=== PATIENT | male | born 1940 | race Caucasian/White ===

== ENCOUNTER 2017-07-22 15:56 | Inpatient (IN) | payer MEDICARE, BC ==
[~2017-07-22] VITALS: Ht 182.9 cm; Wt 81.6 kg
[~2017-07-22 15:56] MED LIST: OCUVITE1 EA ORAL; TYLENOL100 MG/11 PO
[2017-07-22 15:58] VITALS: BP 119/66
[2017-07-22] MEDS ORDERED: cefTRIAXone 2 GM in NS 110 ML IV SCH (16:15)
[2017-07-22 17:04] LABS: MEAN CORPUSCULAR HEMOGLOBIN 29.5 PG (27.0-31.0); MEAN CORPUSCULAR HGB CONC 30.9 G/DL (32.0-36.0); MEAN CORPUSCULAR VOLUME 95 FL (80-99); MEAN PLATELET VOLUME 9.2 FL (6.5-10.1); PLATELET COUNT 137 K/UL (150-450); RED BLOOD COUNT 3.95 M/UL (4.70-6.10); RED CELL DISTRIBUTION WIDTH 12.3 % (11.6-14.8); WHITE BLOOD COUNT 10.4 K/UL (4.8-10.8)
[2017-07-22 17:30] VITALS: BP 127/69
[2017-07-22 17:38] LABS: ALANINE AMINOTRANSFERASE 21 U/L (12-78); ALBUMIN/GLOBULIN RATIO 1.3 (1.0-2.7); ANION GAP 11 mmol/L (5-15); ASPARTATE AMINO TRANSFERASE 20 U/L (15-37); CALCIUM 9.4 MG/DL (8.5-10.1); CARBON DIOXIDE 25 MMOL/L (21-32); CHLORIDE 110 MMOL/L (98-107); CKMB 1.4 NG/ML (0.0-3.6); CREATININE 1.5 MG/DL (0.55-1.30); POTASSIUM 4.4 MMOL/L (3.5-5.1); SODIUM 146 MMOL/L (136-145); TOTAL PROTEIN 6.8 G/DL (6.4-8.2)
[2017-07-22 17:56] LABS: BILIRUBIN,DIRECT 0.4 MG/DL (0.0-0.3)
--- NOTE | 2017-07-22 18:16 | Diagnostic Imaging Report ---
Indication: Shortness of breath Technique: One view of the chest Comparison: none Findings: Nodular opacity in the left lung base likely reflects a nipple shadow. The lungs and pleural spaces are clear. Heart size is normal. Surgical clip is seen in the left lung apex Impression: No acute process
[2017-07-22 18:31] VITALS: BP 149/81
[2017-07-22 18:37] LABS: APPEARANCE,URINE CLEAR; KETONES,URINE 1+ (NEGATIVE); LEUKOCYTE ESTERASE ,URINE 1+ (NEGATIVE); NITRITE,URINE NEGATIVE (NEGATIVE); PH,URINE 5 (4.5-8.0); PROTEIN,URINE 2+ (NEGATIVE); UROBILINOGEN,URINE NORMAL MG/DL (0.0-1.0)
[2017-07-22 18:53] LABS: BACTERIA,URINE FEW /HPF
[2017-07-22 18:54] LABS: AMORPHOUS SEDIMENT,UR FEW /LPF
[2017-07-22] MEDS ORDERED: Vancomycin 1 GM in NS 275 ML IVPB ONE (19:00)
[2017-07-22] MEDS ORDERED: Vancomycin 1gm inj IVPB ONE (19:06)
[2017-07-22] MEDS ORDERED: NS 275 ML ONE (19:09)
[2017-07-22 19:20] VITALS: BP 147/87
[2017-07-22 19:28] LABS: ANISOCYTOSIS 1+; BAND NEUTROPHILS % (MANUAL) 1 % (0-8); BASOPHILS % (MANUAL) 0 % (0-2); EOSINOPHILS % (MANUAL) 0 % (0-3); HYPOCHROMASIA 1+; LYMPHOCYTES % (MANUAL) 8 % (20-45); NEUTROPHILS % (MANUAL) 88 % (45-75); PLATELET ESTIMATE DECREASED; PLATELET MORPHOLOGY NORMAL; TOTAL CELLS COUNTED 100
[2017-07-22] MEDS ORDERED: levETIRAcetam 500mg vial IV ONE (20:09)
[2017-07-22] MEDS ORDERED: levETIRAcetam 500 MG in D5W 95 ML IVPB ONE (20:15)
[2017-07-22 21:20] VITALS: BP 144/83
[2017-07-22] MEDS ORDERED: Albuterol/Ipratropium 3ml neb HHN PRN (21:30)
[2017-07-22] MEDS ORDERED: Promethazine/Codeine 5ml UD ORAL PRN (21:30)
[2017-07-22] MEDS ORDERED: Nitroglycerin Subl 0.4mg tab SL PRN (21:30)
[2017-07-22] MEDS ORDERED: Miralax 17gm pkt ORAL PRN (21:30)
[2017-07-22] MEDS ORDERED: Mylanta II UD 30ml ORAL PRN (21:30)
--- NOTE | 2017-07-22 22:15 | Emergency Room Report ---
History of Present Illness General Chief Complaint: Altered Mental Status Source: Patient, EMS Present Illness HPI Patient is brought in by EMS for confusion. Apparently, this patient was wandering and confused at his neighbors house about 3 houses down from his home. The neighbors of this patient and called EMS. The patient himself has no complaints. The patient is oriented x1. There is no other history available. The patient believes that the president is president Richard. He believes the year is 2013. Allergies: Coded Allergies: No Known Allergies (Unverified , 04/25/13) UNABLE TO ASSESS (Unverified , 07/22/17) Patient History Past Medical History: unable to obtain Past Surgical History: unable to obtain Pertinent Family History: unable to obtain Social History: Denies: smoking, alcohol use, drug use Reviewed Nursing Documentation: PMH: Agreed, PSxH: Agreed Nursing Documentation-PMH Past Medical History Deferred: Pt Cognitively Impaired Review of Systems All Other Systems: negative except mentioned in HPI Physical Exam Vital Signs Date Time Temp Pulse Resp B/P (MAP) Pulse Ox O2 Delivery O2 Flow Rate FiO2 07/22/17 15:50 102.6 109 20 152/77 96 Room Air Sp02 EP Interpretation: reviewed, normal General Appearance: no apparent distress, alert, GCS 15, non-toxic Head: normocephalic, atraumatic Eyes: bilateral eye normal inspection, bilateral eye PERRL ENT: hearing grossly normal, normal pharynx, no angioedema, normal voice Neck: full range of motion, supple/symm/no masses Respiratory: chest non-tender, lungs clear, normal breath sounds, speaking full sentences Cardiovascular #1: regular rate, rhythm, no edema Gastrointestinal: normal bowel sounds, non tender, soft, non-distended, no guarding, no rebound Rectal: deferred Musculoskeletal: back normal, normal range of motion, non-tender Neurologic: alert, responsive, motor strength/tone normal, sensory intact, speech normal, other - oriented to self only Psychiatric: mood/affect normal, no suicidal/homicidal ideation Skin: normal color, no rash, warm/dry, well hydrated Medical Decision Making Diagnostic Impression: Primary Impression: Sepsis Additional Impression: Intracranial mass ER Course This patient presents with confusion. He is only oriented to self. He has no known family. He also presents with a temp of 102. CT of the patient's head shows mass lesions. These could be metastatic lesions versus abscesses. There is some midline shift. The patient was given broad-spectrum antibiotics and antiseizure medications. He is also given IV fluid and admitted to telemetry for further evaluation and treatment. Laboratory Tests Test 07/22/17 16:27 07/22/17 17:35 White Blood Count 10.4 K/UL (4.8-10.8) Red Blood Count 3.95 M/UL (4.70-6.10) L Hemoglobin 11.7 G/DL (14.2-18.0) L Hematocrit 37.7 % (42.0-52.0) L Mean Corpuscular Volume 95 FL (80-99) Mean Corpuscular Hemoglobin 29.5 PG (27.0-31.0) Mean Corpuscular Hemoglobin Concent 30.9 G/DL (32.0-36.0) L Red Cell Distribution Width 12.3 % (11.6-14.8) Platelet Count 137 K/UL (150-450) L Mean Platelet Volume 9.2 FL (6.5-10.1) Neutrophils (%) (Auto) % (45.0-75.0) Lymphocytes (%) (Auto) % (20.0-45.0) Monocytes (%) (Auto) % (1.0-10.0) Eosinophils (%) (Auto) % (0.0-3.0) Basophils (%) (Auto) % (0.0-2.0) Differential Total Cells Counted 100 Neutrophils % (Manual) 88 % (45-75) H Lymphocytes % (Manual) 8 % (20-45) L Monocytes % (Manual) 3 % (1-10) Eosinophils % (Manual) 0 % (0-3) Basophils % (Manual) 0 % (0-2) Band Neutrophils 1 % (0-8) Platelet Estimate Decreased L Platelet Morphology Normal Hypochromasia 1+ Anisocytosis 1+ Sodium Level 146 MMOL/L (136-145) H Potassium Level 4.4 MMOL/L (3.5-5.1) Chloride Level 110 MMOL/L (98-107) H Carbon Dioxide Level 25 MMOL/L (21-32) Anion Gap 11 mmol/L (5-15) Blood Urea Nitrogen 39 mg/dL (7-18) H Creatinine 1.5 MG/DL (0.55-1.30) H Estimate Glomerular Filtration Rate mL/min (>60) Glucose Level 124 MG/DL (74-106) H Lactic Acid Level 1.70 mmol/L (0.66-2.22) Calcium Level 9.4 MG/DL (8.5-10.1) Total Bilirubin 2.4 MG/DL (0.2-1.0) H Direct Bilirubin 0.4 MG/DL (0.0-0.3) H Aspartate Amino Transferase (AST) 20 U/L (15-37) Alanine Aminotransferase (ALT) 21 U/L (12-78) Alkaline Phosphatase 81 U/L (46-116) Total Creatine Kinase 78 U/L (26-308) Creatine Kinase MB 1.4 NG/ML (0.0-3.6) Creatine Kinase MB Relative Index 1.7 Troponin I 0.006 ng/mL (0.000-0.056) Total Protein 6.8 G/DL (6.4-8.2) Albumin 3.8 G/DL (3.4-5.0) Globulin 3.0 g/dL Albumin/Globulin Ratio 1.3 (1.0-2.7) Urine Color Yellow Urine Appearance Clear Urine pH 5 (4.5-8.0) Urine Specific [place] 1.020 (1.005-1.035) Urine Protein 2+ (NEGATIVE) H Urine Glucose (UA) Negative (NEGATIVE) Urine Ketones 1+ (NEGATIVE) H Urine Occult Blood Negative (NEGATIVE) Urine Nitrite Negative (NEGATIVE) Urine Bilirubin Negative (NEGATIVE) Urine Urobilinogen Normal MG/DL (0.0-1.0) Urine Leukocyte Esterase 1+ (NEGATIVE) H Urine RBC 2-4 /HPF (0 - 0) H Urine WBC 5-10 /HPF (0 - 0) H Urine Squamous Epithelial Cells None /LPF (NONE/OCC) Urine Amorphous Sediment Few /LPF (NONE) H Urine Bacteria Few /HPF (NONE) Urine Fine Granular Casts 2-4 /LPF (NONE) H EKG Diagnostic Results Rate: normal Rhythm: NSR ST Segments: other Other Impression NSST Rhythm Strip Diag. Results EP Interpretation: yes Rate: 50's Rhythm: no PVC's, no ectopy, other Other Impression S.bradycardia. Chest X-Ray Diagnostic Results Chest X-Ray Diagnostic Results : Chest X-Ray Ordered: Yes # of Views/Limited/Complete: 1 View Indication: Other - fever EP Interpretation: No Interpretation: no consolidation, no effusion, no pneumothorax, no acute cardiopulmonary disease Impression: No acute disease Electronically Signed by: Luis Miguel CT/MRI/US Diagnostic Results CT/MRI/US Diagnostic Results : Imaging Test Ordered: CT head Impression Left frontal also states that approximately 4 x 2.9 cm with the chief a vasogenic edema and mass effect on the left frontal horn. Also small area of edema and suspected small cystic mass right frontal lobe. Findings can be neoplastic or infection/laboratory process. No hemorrhage. See official report. Last Vital Signs Date Time Temp Pulse Resp B/P (MAP) Pulse Ox O2 Delivery O2 Flow Rate FiO2 07/22/17 19:20 98.0 82 17 147/87 100 Room Air Disposition: ADMITTED INPATIENT Condition: Serious Referrals: NOT CHOSEN HUMA/,REFERRING (PCP) VICKY NATHAN D.O. Jul 22, 2017 22:15
[2017-07-22 22:47] VITALS: BP 139/85
[2017-07-23] VITALS: BP 148/94
[2017-07-23 04:00] VITALS: BP 136/85
[2017-07-23 08:00] VITALS: BP_SYST 129; BP_SYST 146; BP_DIAS 75; BP_DIAS 76
[2017-07-23 08:12] LABS: BASOPHILS % (AUTO) 0.7 % (0.0-2.0); EOSINOPHILS % (AUTO) 1.8 % (0.0-3.0); LYMPHOCYTES % (AUTO) 11.7 % (20.0-45.0); MEAN CORPUSCULAR HGB CONC 32.5 G/DL (32.0-36.0); MEAN CORPUSCULAR VOLUME 95 FL (80-99); MEAN PLATELET VOLUME 10.9 FL (6.5-10.1); MONOCYTES % (AUTO) 10.4 % (1.0-10.0); NEUTROPHILS % (AUTO) 75.4 % (45.0-75.0); PLATELET COUNT 136 K/UL (150-450); RED BLOOD COUNT 3.87 M/UL (4.70-6.10); RED CELL DISTRIBUTION WIDTH 12.4 % (11.6-14.8); WHITE BLOOD COUNT 10.2 K/UL (4.8-10.8)
[2017-07-23 08:27] LABS: ANION GAP 7 mmol/L (5-15); CALCIUM 8.8 MG/DL (8.5-10.1); CARBON DIOXIDE 26 MMOL/L (21-32); CHLORIDE 112 MMOL/L (98-107); CREATININE 1.2 MG/DL (0.55-1.30); PHOSPHORUS 2.8 MG/DL (2.5-4.9); POTASSIUM 3.9 MMOL/L (3.5-5.1); SODIUM 145 MMOL/L (136-145)
[2017-07-23 08:30] LABS: INR 1.1 (0.9-1.1); PROTHROMBIN TIME 11.7 SEC (9.30-11.50)
[2017-07-23 08:49] LABS: IRON 99 ug/dL (50-175); TOTAL IRON BINDING CAPACITY 211 ug/dL (250-450)
[2017-07-23] MEDS: Heparin 5000 units/ml inj SUBQ SCH ×2 (09:00→21:17)
[2017-07-23 09:17] LABS: FOLIC ACID 19.7 NG/ML (3.1-17.5)
[2017-07-23 09:35] LABS: LACTATE DEHYDROGENASE 133 U/L (135-225)
[2017-07-23 09:38] LABS: ERYTHROCYTE SEDIMENTATION RATE 4 MM/HR (0-20)
--- NOTE | 2017-07-23 09:48 | Consultation ---
Consult Note Consult Note ID CONSULT: Prudence# [id number] Assessment/Plan ASSESSMENT: 77 y/o male with: // Fever r/o infection vs malignancy - improved, no leukocytosis, cultures pending. No localizing s/sx infection - UA(-), CXR NAF // Acute encephalopathy - CT Head 07/22: mass lesions. These could be metastatic lesions versus abscesses. There is some midline shift. // Abnl CT head - CT Head 07/22: mass lesions. These could be metastatic lesions versus abscesses. There is some midline shift. // Possible h/o unknown CA SP unknown surgery x2 @ [facility] // TCP // NKDA // Full Code PLAN: - continue empiric IV vancomycin, cefepime d# 2 pending cultures - check echo - consider MRI - consider steroids - f/u cultures - f/u malignancy w/u - f/u neuro eval - f/u CT head - monitor CBC, temperatures - monitor BMP - request/review [facility] records Thanks! Will follow JAVAN REED Jul 23, 2017 09:48
[2017-07-23 09:54] LABS: BAND NEUTROPHILS % (MANUAL) 1 % (0-8); BASOPHILS % (MANUAL) 1 % (0-2); EOSINOPHILS % (MANUAL) 1 % (0-3); LYMPHOCYTES % (MANUAL) 14 % (20-45); NEUTROPHILS % (MANUAL) 74 % (45-75); PLATELET ESTIMATE DECREASED; PLATELET MORPHOLOGY NORMAL; TOTAL CELLS COUNTED 100
[2017-07-23 09:56] LABS: ACANTHOCYTES OCCASIONAL
[2017-07-23 10:15] LABS: RETICULOCYTE COUNT 0.3 % (0.0-2.0)
[2017-07-23] MEDS: Cefepime HCl 1 GM in D5W 55 ML IV SCH ×2 (10:25→21:16)
[2017-07-23 11:51] VITALS: BP 117/76
[2017-07-23 12:32] LABS: PATH BLOOD SMEAR/OMC SENT TO PATHOLOGIST
--- NOTE | 2017-07-23 12:38 | History and Physical ---
History of Present Illness General Date patient seen: Jul 23, 2017 Reason for Hospitalization: Altered Mental Status Present Illness HPI 77 year old with unknown PMHx brought in by paramedics with CC of confusion. He was found by neighbors confused. He knows his name and knows the location confused about date. His initial CT of head showed possible brain mass or abscess. He was febrile. He is admitted to telemetry for further work up. Pt has an old surgical scar in abdomen. 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 But the thinks we are in 1987. Allergies: Coded Allergies: No Known Allergies (Unverified , 04/25/13) UNABLE TO ASSESS (Unverified , 07/22/17) Medication History Scheduled Acetaminophen (Tylenol), 500 MG PO Q6HR Beta-Carotene(A) W-C & E/Min (Prosight Tablet), 1 TAB ORAL DAILY, (Reported) Patient History Healthcare decision maker Resuscitation status Full Code Advanced Directive on File No Review of Systems All Other Systems: negative except mentioned in HPI Physical Exam General Appearance: WD/WN Lines, tubes and drains: peripheral, trach HEENT: atraumatic Neck: non-tender, normal alignment Respiratory/Chest: chest wall non-tender, lungs clear Cardiovascular/Chest: normal peripheral pulses, normal rate Abdomen: normal bowel sounds, non tender Genitourinary/Rectal: normal genital exam Extremities: normal range of motion Neurologic: independent contractor II-XII grossly normal Last 24 Hour Vital Signs Date Time Temp Pulse Resp B/P (MAP) Pulse Ox O2 Delivery O2 Flow Rate FiO2 07/23/17 11:51 97.2 52 18 117/76 99 Room Air 07/23/17 08:00 97.0 51 18 146/76 99 Room Air 07/23/17 08:00 48 07/23/17 04:10 55 07/23/17 04:00 97.0 74 21 136/85 100 Room Air 07/23/17 00:08 65 07/23/17 00:00 98.1 68 23 148/94 98 Room Air 07/23/17 00:00 98.0 76 16 148/94 99 Room Air 07/22/17 23:20 98.0 60 16 139/85 100 Room Air 07/22/17 22:47 98.0 60 16 139/85 100 Room Air 07/22/17 21:20 98.0 59 17 144/83 100 Room Air 07/22/17 19:20 98.0 82 17 147/87 100 Room Air 07/22/17 18:31 98.0 73 18 149/81 100 Room Air 07/22/17 17:30 97.8 75 18 127/69 100 Room Air 07/22/17 17:18 97.8 07/22/17 15:58 102.6 87 17 119/66 100 Room Air 07/22/17 15:50 102.6 109 20 152/77 96 Room Air Laboratory Tests Test 07/22/17 16:27 07/22/17 17:35 07/23/17 06:55 White Blood Count 10.4 K/UL (4.8-10.8) 10.2 K/UL (4.8-10.8) Red Blood Count 3.95 M/UL (4.70-6.10) L 3.87 M/UL (4.70-6.10) L Hemoglobin 11.7 G/DL (14.2-18.0) L 12.0 G/DL (14.2-18.0) L Hematocrit 37.7 % (42.0-52.0) L 37.0 % (42.0-52.0) L Mean Corpuscular Volume 95 FL (80-99) 95 FL (80-99) Mean Corpuscular Hemoglobin 29.5 PG (27.0-31.0) 31.0 PG (27.0-31.0) Mean Corpuscular Hemoglobin Concent 30.9 G/DL (32.0-36.0) L 32.5 G/DL (32.0-36.0) Red Cell Distribution Width 12.3 % (11.6-14.8) 12.4 % (11.6-14.8) Platelet Count 137 K/UL (150-450) L 136 K/UL (150-450) L Mean Platelet Volume 9.2 FL (6.5-10.1) 10.9 FL (6.5-10.1) H Neutrophils (%) (Auto) % (45.0-75.0) 75.4 % (45.0-75.0) H Lymphocytes (%) (Auto) % (20.0-45.0) 11.7 % (20.0-45.0) L Monocytes (%) (Auto) % (1.0-10.0) 10.4 % (1.0-10.0) H Eosinophils (%) (Auto) % (0.0-3.0) 1.8 % (0.0-3.0) Basophils (%) (Auto) % (0.0-2.0) 0.7 % (0.0-2.0) Differential Total Cells Counted 100 100 Neutrophils % (Manual) 88 % (45-75) H 74 % (45-75) Lymphocytes % (Manual) 8 % (20-45) L 14 % (20-45) L Monocytes % (Manual) 3 % (1-10) 9 % (1-10) Eosinophils % (Manual) 0 % (0-3) 1 % (0-3) Basophils % (Manual) 0 % (0-2) 1 % (0-2) Band Neutrophils 1 % (0-8) 1 % (0-8) Platelet Estimate Decreased L Decreased L Platelet Morphology Normal Normal Hypochromasia 1+ Anisocytosis 1+ Sodium Level 146 MMOL/L (136-145) H 145 MMOL/L (136-145) Potassium Level 4.4 MMOL/L (3.5-5.1) 3.9 MMOL/L (3.5-5.1) Chloride Level 110 MMOL/L (98-107) H 112 MMOL/L (98-107) H Carbon Dioxide Level 25 MMOL/L (21-32) 26 MMOL/L (21-32) Anion Gap 11 mmol/L (5-15) 7 mmol/L (5-15) Blood Urea Nitrogen 39 mg/dL (7-18) H 29 mg/dL (7-18) H Creatinine 1.5 MG/DL (0.55-1.30) H 1.2 MG/DL (0.55-1.30) Estimat Glomerular Filtration Rate mL/min (>60) mL/min (>60) Glucose Level 124 MG/DL (74-106) H 112 MG/DL (74-106) H Lactic Acid Level 1.70 mmol/L (0.66-2.22) Calcium Level 9.4 MG/DL (8.5-10.1) 8.8 MG/DL (8.5-10.1) Total Bilirubin 2.4 MG/DL (0.2-1.0) H Direct Bilirubin 0.4 MG/DL (0.0-0.3) H Aspartate Amino Transf (AST/SGOT) 20 U/L (15-37) Alanine Aminotransferase (ALT/SGPT) 21 U/L (12-78) Alkaline Phosphatase 81 U/L (46-116) Total Creatine Kinase 78 U/L (26-308) Creatine Kinase MB 1.4 NG/ML (0.0-3.6) Creatine Kinase MB Relative Index 1.7 Troponin I 0.006 ng/mL (0.000-0.056) Total Protein 6.8 G/DL (6.4-8.2) Albumin 3.8 G/DL (3.4-5.0) 3.3 G/DL (3.4-5.0) L Globulin 3.0 g/dL Albumin/Globulin Ratio 1.3 (1.0-2.7) Urine Color Yellow Urine Appearance Clear Urine pH 5 (4.5-8.0) Urine Specific [place] 1.020 (1.005-1.035) Urine Protein 2+ (NEGATIVE) H Urine Glucose (UA) Negative (NEGATIVE) Urine Ketones 1+ (NEGATIVE) H Urine Occult Blood Negative (NEGATIVE) Urine Nitrite Negative (NEGATIVE) Urine Bilirubin Negative (NEGATIVE) Urine Urobilinogen Normal MG/DL (0.0-1.0) Urine Leukocyte Esterase 1+ (NEGATIVE) H Urine RBC 2-4 /HPF (0 - 0) H Urine WBC 5-10 /HPF (0 - 0) H Urine Squamous Epithelial Cells None /LPF (NONE/OCC) Urine Amorphous Sediment Few /LPF (NONE) H Urine Bacteria Few /HPF (NONE) Urine Fine Granular Casts 2-4 /LPF (NONE) H Urine Eosinophils None seen Urine Random Sodium 89 MEQ/L (20-110) Urine Potassium Timed 81 mmol/L (12-62) H Uric Acid 6.5 MG/DL (2.6-7.2) Acanthocytes Occasional Erythrocyte Sedimentation Rate 4 MM/HR (0-20) Reticulocyte Count 0.3 % (0.0-2.0) Prothrombin Time 11.7 SEC (9.30-11.50) H Prothromb Time International Ratio 1.1 (0.9-1.1) Activated Partial Thromboplast Time 25 SEC (23-33) Phosphorus Level 2.8 MG/DL (2.5-4.9) Iron Level 99 ug/dL (50-175) Total Iron Binding Capacity 211 ug/dL (250-450) L Percent Iron Saturation 47 % (15-50) Unsaturated Iron Binding 112 ug/dL (112-346) Lactate Dehydrogenase 133 U/L (135-225) L Vitamin B12 Level 333 PG/ML (193-986) Folate 19.7 NG/ML (3.1-17.5) H Height (Feet): 6 Height (Inches): 0.00 Weight (Pounds): 180 Medications Current Medications Medications (Trade) Dose Ordered Sig/Rory Route PRN Reason Start Time Stop Time Status Last Admin Dose Admin Acetaminophen (Tylenol) 650 mg Q4H PRN ORAL fever 07/22/17 21:30 08/21/17 21:29 Al Hydroxide/Mg Hydroxide (Mylanta II) 30 ml Q6H PRN ORAL dyspepsia 07/22/17 21:30 08/21/17 21:29 Albuterol/ Ipratropium (DuoNeb 0.5-3(2.5)mg/3ml) 3 ml Q4H PRN HHN Shortness of Breath 07/22/17 21:30 07/27/17 21:29 Cefepime HCl 1 gm/ Dextrose 55 ml @ 110 mls/hr EVERY 12 HOURS IV 07/23/17 09:00 07/30/17 08:59 07/23/17 10:25 Heparin Sodium (Porcine) (Heparin 5000 units/ml) 5,000 units EVERY 12 HOURS SUBQ 07/23/17 09:00 08/22/17 08:59 Nitroglycerin (Ntg) 0.4 mg Q5MIN X 3 DOSES PRN SL Prn Chest Pain 07/22/17 21:30 08/21/17 21:29 Ondansetron HCl (Zofran) 4 mg Q6H PRN IVP Nausea & Vomiting 07/22/17 21:30 08/21/17 21:29 Polyethylene Glycol (Miralax) 17 gm DAILYPRN PRN ORAL Constipation 07/22/17 21:30 08/21/17 21:29 Promethazine HCl/ Codeine (Phenergan with Codeine) 5 ml Q4H PRN ORAL For Cough 07/22/17 21:30 08/21/17 21:29 Temazepam (Restoril) 15 mg HSPRN PRN ORAL Insomnia 07/22/17 21:30 07/29/17 21:29 Vancomycin HCl (Vanco rx to dose) 1 ea DAILY PRN MISC Per rx protocol 07/22/17 21:30 08/21/17 21:29 Vancomycin HCl/ Dextrose 250 ml @ 166.667 mls/hr Q24H IVPB 07/23/17 18:00 07/28/17 17:59 Assessment/Plan Problem List: (1) Sepsis ICD Codes: A41.9 - Sepsis, unspecified organism SNOMED: 94889844 (2) Intracranial mass ICD Codes: R90.0 - Intracranial space-occupying lesion found on diagnostic imaging of central nervous system SNOMED: 00312397 (3) History of malignant neoplasm of pancreas ICD Codes: Z85.07 - Personal history of malignant neoplasm of pancreas SNOMED: 95927436076595 Assessment/Plan MRI of brain , Ct chest, abdomen broad spectrum abx check cultures social sciences professor consult try to get records from [facility]. pt/ot JOE PROCTOR Jul 23, 2017 12:38
[2017-07-23] MEDS ORDERED: Hydrocortisone 100mg Inj IV SCH (14:00)
--- NOTE | 2017-07-23 14:33 | Neurology Progress Note ---
Objective Physical Exam Last Vital Signs Date Time Temp Pulse Resp B/P (MAP) Pulse Ox O2 Delivery O2 Flow Rate FiO2 07/23/17 11:51 97.2 52 18 117/76 99 Room Air Laboratory Tests Test 07/22/17 16:27 07/22/17 17:35 07/23/17 06:55 White Blood Count 10.4 K/UL (4.8-10.8) 10.2 K/UL (4.8-10.8) Red Blood Count 3.95 M/UL (4.70-6.10) L 3.87 M/UL (4.70-6.10) L Hemoglobin 11.7 G/DL (14.2-18.0) L 12.0 G/DL (14.2-18.0) L Hematocrit 37.7 % (42.0-52.0) L 37.0 % (42.0-52.0) L Mean Corpuscular Volume 95 FL (80-99) 95 FL (80-99) Mean Corpuscular Hemoglobin 29.5 PG (27.0-31.0) 31.0 PG (27.0-31.0) Mean Corpuscular Hemoglobin Concent 30.9 G/DL (32.0-36.0) L 32.5 G/DL (32.0-36.0) Red Cell Distribution Width 12.3 % (11.6-14.8) 12.4 % (11.6-14.8) Platelet Count 137 K/UL (150-450) L 136 K/UL (150-450) L Mean Platelet Volume 9.2 FL (6.5-10.1) 10.9 FL (6.5-10.1) H Neutrophils (%) (Auto) % (45.0-75.0) 75.4 % (45.0-75.0) H Lymphocytes (%) (Auto) % (20.0-45.0) 11.7 % (20.0-45.0) L Monocytes (%) (Auto) % (1.0-10.0) 10.4 % (1.0-10.0) H Eosinophils (%) (Auto) % (0.0-3.0) 1.8 % (0.0-3.0) Basophils (%) (Auto) % (0.0-2.0) 0.7 % (0.0-2.0) Differential Total Cells Counted 100 100 Neutrophils % (Manual) 88 % (45-75) H 74 % (45-75) Lymphocytes % (Manual) 8 % (20-45) L 14 % (20-45) L Monocytes % (Manual) 3 % (1-10) 9 % (1-10) Eosinophils % (Manual) 0 % (0-3) 1 % (0-3) Basophils % (Manual) 0 % (0-2) 1 % (0-2) Band Neutrophils 1 % (0-8) 1 % (0-8) Platelet Estimate Decreased L Decreased L Platelet Morphology Normal Normal Hypochromasia 1+ Anisocytosis 1+ Sodium Level 146 MMOL/L (136-145) H 145 MMOL/L (136-145) Potassium Level 4.4 MMOL/L (3.5-5.1) 3.9 MMOL/L (3.5-5.1) Chloride Level 110 MMOL/L (98-107) H 112 MMOL/L (98-107) H Carbon Dioxide Level 25 MMOL/L (21-32) 26 MMOL/L (21-32) Anion Gap 11 mmol/L (5-15) 7 mmol/L (5-15) Blood Urea Nitrogen 39 mg/dL (7-18) H 29 mg/dL (7-18) H Creatinine 1.5 MG/DL (0.55-1.30) H 1.2 MG/DL (0.55-1.30) Estimat Glomerular Filtration Rate mL/min (>60) mL/min (>60) Glucose Level 124 MG/DL (74-106) H 112 MG/DL (74-106) H Lactic Acid Level 1.70 mmol/L (0.66-2.22) Calcium Level 9.4 MG/DL (8.5-10.1) 8.8 MG/DL (8.5-10.1) Total Bilirubin 2.4 MG/DL (0.2-1.0) H Direct Bilirubin 0.4 MG/DL (0.0-0.3) H Aspartate Amino Transf (AST/SGOT) 20 U/L (15-37) Alanine Aminotransferase (ALT/SGPT) 21 U/L (12-78) Alkaline Phosphatase 81 U/L (46-116) Total Creatine Kinase 78 U/L (26-308) Creatine Kinase MB 1.4 NG/ML (0.0-3.6) Creatine Kinase MB Relative Index 1.7 Troponin I 0.006 ng/mL (0.000-0.056) Total Protein 6.8 G/DL (6.4-8.2) Albumin 3.8 G/DL (3.4-5.0) 3.3 G/DL (3.4-5.0) L Globulin 3.0 g/dL Albumin/Globulin Ratio 1.3 (1.0-2.7) Urine Color Yellow Urine Appearance Clear Urine pH 5 (4.5-8.0) Urine Specific [place] 1.020 (1.005-1.035) Urine Protein 2+ (NEGATIVE) H Urine Glucose (UA) Negative (NEGATIVE) Urine Ketones 1+ (NEGATIVE) H Urine Occult Blood Negative (NEGATIVE) Urine Nitrite Negative (NEGATIVE) Urine Bilirubin Negative (NEGATIVE) Urine Urobilinogen Normal MG/DL (0.0-1.0) Urine Leukocyte Esterase 1+ (NEGATIVE) H Urine RBC 2-4 /HPF (0 - 0) H Urine WBC 5-10 /HPF (0 - 0) H Urine Squamous Epithelial Cells None /LPF (NONE/OCC) Urine Amorphous Sediment Few /LPF (NONE) H Urine Bacteria Few /HPF (NONE) Urine Fine Granular Casts 2-4 /LPF (NONE) H Urine Eosinophils None seen Urine Random Sodium 89 MEQ/L (20-110) Urine Potassium Timed 81 mmol/L (12-62) H Uric Acid 6.5 MG/DL (2.6-7.2) Acanthocytes Occasional Erythrocyte Sedimentation Rate 4 MM/HR (0-20) Reticulocyte Count 0.3 % (0.0-2.0) Prothrombin Time 11.7 SEC (9.30-11.50) H Prothromb Time International Ratio 1.1 (0.9-1.1) Activated Partial Thromboplast Time 25 SEC (23-33) Phosphorus Level 2.8 MG/DL (2.5-4.9) Iron Level 99 ug/dL (50-175) Total Iron Binding Capacity 211 ug/dL (250-450) L Percent Iron Saturation 47 % (15-50) Unsaturated Iron Binding 112 ug/dL (112-346) Lactate Dehydrogenase 133 U/L (135-225) L CA 15-3 Antigen Pending CA 27.29 Pending CA 125 Antigen Pending Vitamin B12 Level 333 PG/ML (193-986) Folate 19.7 NG/ML (3.1-17.5) H HIV (1&2) Antibody Rapid Negative (NEGATIVE) Impression/Recommendations Recommendations #[id number] BARBER SERRANO Jul 23, 2017 14:33
[2017-07-23] MEDS ORDERED: Lansoprazole 15mg cap ORAL SCH (15:30)
[2017-07-23 16:01] VITALS: BP 131/92
--- NOTE | 2017-07-23 16:21 | Diagnostic Imaging Report ---
Indication: 77-year-old with altered mental status, confusion brain mass versus abscess. Technique: Continuous helical transaxial imaging of the chest, abdomen and pelvis was obtained from the lung bases to the pubic symphysis during intravenous contrast administration. Multiple phases of enhancement obtained. Coronal 2-D reformats were also obtained. Study obtained in a Siemens sensation [address] Total Dose length Product (DLP): [address] Dose Index Volume (CTDIvol): 0.15, 0.15, 8.11, 73, 9.75, 10.98 mGy Comparison: None Findings: CT chest: There is breathing motion artifact. Linear densities, mild in degree at the lung bases likely atelectasis demonstrated. There is no adenopathy identified. The esophagus appears mildly distended. There is relative absence of subcutaneous fat and soft tissues consistent with cachexia. There is abnormal sclerosis and heterogeneity at T9 vertebra suspicious for metastatic disease. Complete laminectomy is noted at this level, indicating patient may have had spinal decompression due to metastatic disease. This is at least the possibility. Please correlate with the clinical history. CT abdomen pelvis: Cholecystectomy noted. Biliary ducts are mildly prominent. Surgical clips in the area of the pancreatic bed with no significant pancreatic tissue identified. Aorta shows mural calcification. There are a few bilateral renal cysts. There is no adrenal mass. There is no evidence of bowel obstruction. There is no adenopathy. Prostate is enlarged and centrally calcified. Prostate gland measures about 5.4 x 6.0 cm x 6.0 cm. There is a round sclerotic focus in the L1 vertebra likely a bone island. The bones are osteopenic. L5-S1 laminectomy noted. Impression: Abnormal sclerosis and heterogeneity of the T9 vertebra. Finding is suspicious for metastatic neoplasm. Complete laminectomy is also noted at this level. Please correlate with the clinical history. No evidence of metastatic neoplasm within the chest abdomen or pelvis otherwise. Trace right pleural effusion. Prominent biliary ducts likely accounted for by advanced age and prior cholecystectomy. Please correlate clinically. Status post pancreatectomy. atherosclerotic disease. Small bilateral renal cysts. Prostate enlargement. L5-S1 laminectomy. The CT scanner at [facility] is accredited by the [employer] and the scans are performed using dose optimization techniques as appropriate to a performed exam including Automatic Exposure control.
--- NOTE | 2017-07-23 16:30 | Consultation ---
DATE OF CONSULTATION: 07/23/2017 INFECTIOUS DISEASE CONSULTATION CONSULTING PHYSICIAN: Luke Ennis M.D. REQUESTING PHYSICIAN: Devendra Aguero M.D. REASON FOR CONSULTATION: Fever. HISTORY OF PRESENT ILLNESS: This is a 77-year-old male with a history of unknown malignancy admitted on 07/22/2017 with altered mental status. The patient was reportedly found wandering in the streets and confused. The patient is a poor historian, unable to provide a concrete information. He was febrile to 102.6 on admission. There is no leukocytosis or lactic acidosis. His liver function tests were within normal limits. Blood cultures and sputum cultures are pending. Urinalysis does not suggest UTI and chest x-ray has no evidence of pneumonia. A CT of his head shows possible mass lesion. Official report is pending. He has been started on empiric vancomycin and cefepime and ID now consulted to assist in management. PAST MEDICAL HISTORY: Possible malignancy of unknown source reportedly status post surgery x2 at [facility] in August and December. PAST SURGICAL HISTORY: Possible unknown surgery x2 at [facility] in August 2016 and December 2016. ALLERGIES: No known drug allergies. MEDICATIONS: 1. Vancomycin. 2. Cefepime. 3. Subcutaneous heparin. FAMILY HISTORY: Unreliable. SOCIAL HISTORY: Unknown. REVIEW OF SYSTEMS: Unreliable. PHYSICAL EXAMINATION: VITAL SIGNS: Maximum temperature 102.6, blood pressure 146/76, heart rate in the , respiratory rate 18, and O2 saturation 99%. GENERAL: No apparent distress, nontoxic appearing. HEENT: Eyes, no conjunctivitis or scleral icterus. Head And Neck, no carotid bruits or oral lesions. CARDIOVASCULAR: Regular rate and rhythm. No murmurs. PULMONARY: Clear to auscultation bilaterally. ABDOMINAL: Bowel sounds present. Soft, nondistended, and nontender. EXTREMITIES: No edema. SKIN: No rash. NEUROLOGICAL: Alert and oriented x1, nonfocal. LABORATORY DATA: White blood cell count 10.2 with left shift, hemoglobin 12, and platelets 136,000. Sodium 145, potassium 3.9, chloride 112, bicarbonate 26, BUN 29, creatinine 1.2, and glucose 112. Lactic acid 1.7. Uric acid 6.5. Liver function tests within normal limits. MICROBIOLOGY: 1. On 07/22/2017, blood culture pending. 2. On 07/22/2017, sputum culture pending. IMAGIN. On 07/22/2017, chest x-ray, no acute findings. 2. On 07/22/2017, renal ultrasound pending. 3. On 07/22/2017, CT of the head reportedly with mass lesions, metastatic versus abscess, some midline shift. ASSESSMENT: 1. Fever, rule out infection versus malignancy. Fever has improved and the patient has no leukocytosis and cultures are pending. Urinalysis does not suggest urinary source. Chest x-ray shows no acute findings. Reported possible metastatic lesion versus abscess in the brain on CT of the head. The patient has been started on empiric IV vancomycin and cefepime. 2. Acute encephalopathy with evidence of metastatic lesions versus abscess and midline shift on preliminary CT of the head report. 3. Abnormal CT of the head with metastatic lesions versus abscess. 4. History of unknown cancer, status post unknown surgery x2 at [facility]. 5. Thrombocytopenia. 6. No known drug allergies. 7. Full Code. PLAN: 1. Continue empiric vancomycin and cefepime day #2. 2. Pending cultures. 3. Check echocardiogram. 4. Consider MRI. 5. Consider steroids. 6. Followup cultures. 7. Followup malignancy workup. 8. Monitor CBC and temperatures. 9. Monitor BMP. 10. Request to review [facility] record. 11. Followup Neurology evaluation. Thank you, we will follow. Luke Ennis M.D. DR: KASHIF/MARYCARMEN JOB#: [id number] CC: Devendra Aguero M.D.; Fax#: [phone] Carla Milian M.D; FAX#: [phone]
--- NOTE | 2017-07-23 16:37 | Diagnostic Imaging Report ---
Indication: Cerebral mass. Edema and mass effect seen on CT. Altered mental status Technique: The head was imaged in a 1.5 Nadine magnet. Sequences obtained include sagittal and axial T1 FLAIR, axial T2 fast spin echo with fat saturation, axial T2 FLAIR, diffusion and ADC map. Gadolinium-enhanced axial and coronal T1 FLAIR obtained also. Comparison: Noncontrast CT 07/22/17 Findings: There is considerable motion which limits evaluation. There are 2 lesions demonstrated within the brain. Both of these are cystic with rim enhancement. The larger lesion is in the left frontal lobe centered about the left frontal schneider radiata with moderate compression of the anterior horn of the left lateral ventricle secondary to vasogenic edema surrounding it. There is trace left to right midline shift. This mass has a measurement of approximately 3.3 x 4.2 x 3.3 cm. A second mass in the right frontal white matter measures 1.3 cm in diameter and is also associated with rim enhancement and surrounding vasogenic edema. HIV status is important in terms of the differential diagnosis. Unless the patient is immunocompromised, would favor the diagnosis of metastatic neoplasm. If clinically considering acute encephalitis/cerebritis and abscess in someone who is immunocompromised, would consider toxoplasmosis and the like. There is no diffusion restriction. There is no evidence of acute hemorrhage. The basal cisterns appear normal and well preserved. There is a moderate degree of mucosal thickening and sinus opacification in the left maxillary sinus. The corpus callosum, sella, osseous bone marrow signal appear unremarkable. Impression: Two intra-axial, cystic rim-enhancing lesions within the frontal lobes. Differential diagnosis includes metastatic neoplasm and infection. However, favor metastatic neoplasm. Would consider acute cerebritis/abscess if the patient is immunocompromised (e.g. HIV-positive). Moderate vasogenic edema left frontal lobe worse than right with trace left right midline shift and moderate mass effect on the anterior horn of left lateral ventricle. No associated hemorrhage.
[2017-07-23] MEDS: Dexamethasone 4mg/ml vial IVP SCH ×3 (17:40→23:53)
[2017-07-23] MEDS ORDERED: Vancomycin 1250mg/D5W 250ml 250 ML IVPB SCH (18:00)
[2017-07-23 20:26] VITALS: BP 145/85
--- NOTE | 2017-07-23 20:45 | Consultation ---
DATE OF CONSULTATION: 07/23/2017 NEUROLOGICAL CONSULTATION CONSULTING PHYSICIAN: Sudeep Correa M.D. REQUESTING PHYSICIAN: Devendra Aguero M.D. HISTORY OF PRESENT ILLNESS: The patient is a 77-year-old man, seen in neurological consultation to evaluate new onset of confusion and radiological evidence of a brain mass lesion. The patient informed me that yesterday he was in his car, somehow he lost his memory and he has no recollection what happened after that. He end up to be in the hospital. According to medical records, the patient was brought to emergency room after he was found to be wandering and confused in a neighborhood approximately three houses away from his home. At that point, neighbors called paramedics. The patient was brought to emergency room. Vital signs included temperature 102.6 and blood pressure 152/77. He was oriented x1. He was started on IV fluids and antibiotics. His lab work included a CBC study with hemoglobin 11.7 and hematocrit 37.7. Normal sedimentation rate and reticulocyte count. Coagulation with PT of 11.7. Urinalysis 5 to 10 WBCs and 1+ ketones. Chemistry panel with sodium 146, chloride 110, BUN of 29, creatinine 1.5, blood sugar 124. Elevated total bilirubin 2.4 and direct 0.4, and normal troponins. Imaging studies included chest x-ray, which revealed no acute process. CT scan of the brain markedly abnormal revealing presence of cystic left hemispheric mass lesion with significant surrounding edema, left frontal mass approximately 4 x 2.9 cm, mass effect noted over the left frontal horn. There was also small area of edema and suspected small cystic mass in the right frontal lobe. This could be neoplastic or infection. Following admission, treatment with antibiotics was initiated and his vital signs improved with temperature down to 97.2, heart rate down to 48, and respiratory rate 18. PAST MEDICAL HISTORY: The patient is a very poor historian but indicated that he had a mid lower spinal surgery and surgery on his abdomen approximately 10 years ago presumably malignancy resection removal. The patient is unaware of medication taken at home except vitamins and Tylenol. His previous admission was in 2012. He was diagnosed with pancreatic cancer, which was stable at that time. There was no alcohol or drug abuse. Nonsmoker at that time. The patient had a closed head trauma without loss of consciousness and a skull hematoma. He was found to be stable to be discharged home. His examination status was normal although blood pressure was elevated to 169/81. He was denying use of alcohol, drug abuse, or smoking. He was not on any medication. SOCIAL HISTORY: The patient lives alone. Obviously, he is driving car and takes care of himself. He denies having a caregiver. He states that he has two sons. They live in [place] and they coming. He mentioned that there are some nephews in town. He has no very close people around him. He denies smoking, alcohol, or drug abuse. FAMILY HISTORY: Unavailable. REVIEW OF SYMPTOMS: The patient indicated that he is feeling fairly well, but he knows that he came because of the changes in his mental status. PHYSICAL EXAMINATION: GENERAL: This is a well-developed, somewhat cachectic appearing elderly man, who was asleep but awakens easily, and smiling. VITAL SIGNS: His vital signs now are stable. Heart rate of 52, blood pressure 117/76, and temperature 97.2. HEENT: Head, normocephalic. There is no evidence of trauma. Eyes, ears, and throat are clear. NECK: Supple. No meningeal signs. MUSCULOSKELETAL: Postoperative scarring in the epigastrium region, but also mid-dorsal spine region. Peripheral pulses 1+ and symmetric. MENTAL STATUS: He is alert and oriented to his name, but gave incorrect date, time, place, and able to give his address properly. He was able to follow simple commands. Pleasant, cooperative, and no language abnormalities. CRANIAL NERVE II: Pupils are 3 mm both responding to light and accommodation. Extraocular movements intact. No nystagmus. CRANIAL NERVE V: Normal corneal responses. CRANIAL NERVE VII: No facial asymmetry. CRANIAL NERVE VIII: Grossly normal hearing. CRANIAL NERVES IX THROUGH XII: Tongue is in midline. MOTOR EXAMINATION: Normal muscle tone and strength 5/5 in all extremities. No involuntary movement. Deep tendon reflexes 1+ symmetric with downgoing toes on both sides. SENSORY EXAMINATION: Normal to pinprick and light touch. Gait is somewhat wobbly unassisted. IMPRESSION: 1. This is a 77-year-old man presenting with multiple brain lesions resembling a metastatic disease. 2. History of pancreatic cancer resection several years ago. 3. Hypertension. 4. Confusional state, fever, rule out sepsis. DISCUSSION: The patient presented with onset of changes in mental status, amnestic episode, not clear if patient did have a seizure or developed acute confusional state. This is a radiological appearing of a large left frontal and probably smaller right frontal lobe cystic lesions resembling a metastatic disease versus primary tumors. At this time, the patient will need a rapid assessment including occult malignancy. Get a oncology assessment and neurosurgery assessment. Start on steroid to reduce swelling due to impending herniation. Start on anticonvulsants as a prevention for possible seizure activities. Transfer the patient to facility with neurosurgical services. Thank you for allowing me to see this interesting patient in neurological consultation. Sudeep Carla Correa DR: JUDIE JOB#: [id number] CC:
--- NOTE | 2017-07-23 21:06 | Cardiology Report ---
APPROVED REPORT EXAM: Two-dimensional and M-mode echocardiogram with Doppler and color Doppler. INDICATION Acute Cerebro Vascular disease M-Mode DIMENSIONS IVSd1.1 (0.7-1.1cm)Left Atrium (MM)2.6 (1.6-4.0cm) LVDd3.7 (3.5-5.6cm)Aortic Root2.9 (2.0-3.7cm) PWd1.1 (0.7-1.1cm)Aortic Cusp Exc.1.7 (1.5-2.0cm) IVSs1.4 cm LVDs2.8 (2.5-4.0cm) PWs1.4 cm Normal left ventricular chamber size, systolic function and wall motion. Left ventricular ejection fraction estimated to be 60-65 %. Mild to moderate left ventricular hypertrophy by 2-D. Anterior Echo-free space, may be due to pericardial fat or effusion. All other cardiac chamber sizes are within normal limits. Focal aortic valve sclerosis with adequate cusp excursion. Thickened mitral valve leaflets with normal excursion. Mitral annulus and aortic root calcification. Pulmonic valve not well visualized. Normal tricuspid valve structure. IVC at normal size with physiologic collapse. A color flow and spectral Doppler study was performed and revealed: Mild aortic regurgitation. Mild mitral regurgitation. Mitral inflow indicates MILD ABnormal left ventricular diastolic DYSfunction. Mild tricuspid regurgitation. Tricuspid systolic velocities suggests peak right ventricular systolic pressure of 41 mmHg, mild pulmonary hypertension. Moderate pulmonic regurgitation present.
[2017-07-24] VITALS (8 sets, daily range): BP systolic 135–149; BP diastolic 71–92
[2017-07-24] MEDS ORDERED: Dexamethasone 4mg/ml vial IVP SCH (00:15)
[2017-07-24] MEDS ORDERED: Nitroglycerin Subl 0.4mg tab SL PRN ×3 (00:15→17:00)
[2017-07-24] MEDS ORDERED: Promethazine/Codeine 5ml UD ORAL PRN ×3 (01:30→17:30)
[2017-07-24] MEDS ORDERED: Albuterol/Ipratropium 3ml neb HHN PRN ×3 (01:30→17:30)
[2017-07-24] MEDS ORDERED: Mylanta II UD 30ml ORAL PRN ×3 (03:30→17:30)
[2017-07-24 06:15] LABS: CA 27.29 18.4 U/mL (0.0-38.6)
[2017-07-24] MEDS: Dexamethasone 4mg/ml vial IVP SCH ×3 (06:44→18:13)
[2017-07-24 08:25] LABS: CA15-3 19.7 U/mL (0.0-25.0)
[2017-07-24] MEDS ORDERED: Cefepime HCl 1 GM in D5W 55 ML IV SCH ×4 (09:00)
[2017-07-24] MEDS ORDERED: Heparin 5000 units/ml inj SUBQ SCH ×2 (09:00)
[2017-07-24] MEDS ORDERED: Lansoprazole 15mg cap ORAL SCH ×2 (09:00)
--- NOTE | 2017-07-24 11:34 | Diagnostic Imaging Report ---
Indication: Abnormal renal function test Technique: Grayscale and duplex images of the kidneys, retroperitoneum, and bladder were obtained. Comparison:None Findings: Right kidney measures 10.3 cm in length. Left kidney measures 9.5 cm in length. Both kidneys demonstrate normal echogenicity. No hydronephrosis. There is a 1.5 cm left renal parapelvic cyst. There is a prominent right extrarenal pelvis on the right. Echogenic shadowing focus is seen in the left renal sinus. Note that CT scan of the same day demonstrates a possible lower pole intrarenal calculus. Normal inferior vena cava. Bladder is normal. The prostate is large, prostate volume 76 mL. Echogenic foci and small possible cysts are seen within the prostate Impression: Negative for hydronephrosis Enlarged prostate with calcifications and possible cysts. Nonobstructive left intrarenal calculus Incidental finding left renal parapelvic cyst, also demonstrated on recent CT scan
--- NOTE | 2017-07-24 12:05 | Neurology Progress Note ---
Interim History Interim History ROS Limited/Unobtainable: Yes Complaints: feel ok Events: wondering very confused Objective Physical Exam Last Vital Signs Date Time Temp Pulse Resp B/P (MAP) Pulse Ox O2 Delivery O2 Flow Rate FiO2 07/24/17 11:56 97.2 69 20 144/83 99 Room Air Laboratory Tests Test 07/23/17 15:45 Free Prostate Specific Antigen Pending Percent Free Prostate Specific Ag Pending Prostate Specific Antigen Total Pending General: well developed, no acute distress, other - cachectic Head: normocophalic, atraumatic Neck: no rigidity Neurologic Exam Mental Status: awake, alert, other - confused ox 2 Speech: normal speech Language: normal language Cranial Nerve II: fundus normal Cranial Nerves III, IV, : PERRLA, EOMI, pupils Cranial Nerve V: normal facial sensations Cranial Nerve VII: no facial asymmetry Cranial Nerve VIII: no nystagmus Cranial Nerve IX: gag response Cranial Nerve XI: trapezii function normal Cranial Nerve XII: tongue midline Motor System: no involuntary movement, no muscle wasting Sensory: normal pinprick Coordination: normal finger to nose bilaterally Deep Tendon Reflexes: 0 bicep (L), 0 bicep (R), 0 tricep (L), 0 tricep (R), 0 brachioradialis (L), 0 brachioradialis (R), 0 knee (L), 0 knee (R), 0 ankle (L) , 0 ankle (R) Reflexes: mute plantar (L), mute plantar (R) Gait: stable Impression/Recommendations Problems: (1) brain and bone metastasis. (2) History of malignant neoplasm of pancreas Status: unchanged Recommendations #[id number] oncology/neurosurgery assesment. steroids/keppra/fall precaution BARBER SERRANO Jul 24, 2017 12:05
[2017-07-24 12:16] LABS: PSA % FREE 27.9 % (.); PSA FREE 0.92 ng/mL; PSA TOTAL 3.3 ng/mL (0.0-4.0)
--- NOTE | 2017-07-24 14:31 | Pulmonology Progress Note ---
Assessment/Plan Problems: (1) Sepsis (2) Intracranial mass (3) History of malignant neoplasm of pancreas Assessment/Plan possible bone mets on CT scan Oncology consult afebrile tried to reach family members, nobody answering the phone All medications and treatment were reviewed on steroids and keppra. / social service to find the family Subjective ROS Limited/Unobtainable: No Interval Events: no new events Constitutional: Reports: no symptoms HEENT: Repors: no symptoms Allergies: Coded Allergies: No Known Allergies (Unverified , 04/25/13) UNABLE TO ASSESS (Unverified , 07/22/17) Objective Last 24 Hour Vital Signs Date Time Temp Pulse Resp B/P (MAP) Pulse Ox O2 Delivery O2 Flow Rate FiO2 07/24/17 11:56 97.2 69 20 144/83 99 Room Air 07/24/17 08:51 97.0 70 18 135/82 96 Room Air 07/24/17 04:00 97.5 69 20 135/71 98 Room Air 07/24/17 00:20 97.4 64 19 140/78 99 Room Air 07/23/17 20:26 97.2 67 18 145/85 99 Room Air 07/23/17 19:46 75 18 Room Air 07/23/17 16:41 57 07/23/17 16:01 97.0 62 18 131/92 100 Room Air General Appearance: cachetic HEENT: normocephalic, atraumatic Respiratory/Chest: chest wall non-tender, lungs clear Cardiovascular: normal peripheral pulses, normal rate Abdomen: normal bowel sounds, soft, non tender Genitourinary: normal external genitalia Skin: no rash Microbiology Date/Time Source Procedure Growth Status 07/22/17 16:35 Blood Blood Culture - Preliminary NO GROWTH AFTER 24 HOURS Resulted 07/22/17 16:27 Blood Blood Culture - Preliminary NO GROWTH AFTER 24 HOURS Resulted Laboratory Tests 07/23/17 15:45: Free Prostate Specific Antigen 0.92, Percent Free Prostate Specific Ag 27.9, Prostate Specific Antigen Total 3.3 Current Medications Medications (Trade) Dose Ordered Sig/Rory Route PRN Reason Start Time Stop Time Status Last Admin Dose Admin Acetaminophen (Tylenol) 650 mg Q4H PRN ORAL fever 07/24/17 01:30 08/21/17 21:29 Al Hydroxide/Mg Hydroxide (Mylanta II) 30 ml Q6H PRN ORAL dyspepsia 07/24/17 03:30 08/21/17 21:29 Albuterol/ Ipratropium (DuoNeb 0.5-3(2.5)mg/3ml) 3 ml Q4H PRN HHN Shortness of Breath 07/24/17 01:30 07/27/17 21:29 Cefepime HCl 1 gm/ Dextrose 55 ml @ 110 mls/hr EVERY 12 HOURS IV 07/24/17 09:00 07/30/17 08:59 07/24/17 10:08 Dexamethasone Sodium Phosphate (Decadron 4mg/ml vial) 4 mg Q6HR IVP 07/24/17 06:00 08/22/17 17:59 07/24/17 11:55 Heparin Sodium (Porcine) (Heparin 5000 units/ml) 5,000 units EVERY 12 HOURS SUBQ 07/24/17 09:00 08/22/17 08:59 Lansoprazole (Prevacid) 15 mg DAILY ORAL 07/24/17 09:00 08/22/17 15:29 07/24/17 10:05 Nitroglycerin (Ntg) 0.4 mg Q5MIN X 3 DOSES PRN SL Prn Chest Pain 07/24/17 00:30 08/21/17 21:29 Ondansetron HCl (Zofran) 4 mg Q6H PRN IVP Nausea & Vomiting 07/24/17 03:30 08/21/17 21:29 Polyethylene Glycol (Miralax) 17 gm DAILYPRN PRN ORAL Constipation 07/24/17 21:30 08/21/17 21:29 Promethazine HCl/ Codeine (Phenergan with Codeine) 5 ml Q4H PRN ORAL For Cough 07/24/17 01:30 08/21/17 21:29 Temazepam (Restoril) 15 mg HSPRN PRN ORAL Insomnia 07/24/17 21:30 07/29/17 21:29 Vancomycin HCl (Vanco rx to dose) 1 ea DAILY PRN MISC Per rx protocol 07/24/17 09:00 08/21/17 21:29 Vancomycin HCl/ Dextrose 250 ml @ 166.667 mls/hr Q24H IVPB 07/24/17 18:00 07/28/17 17:59 JOE PROCTOR Jul 24, 2017 14:31
--- NOTE | 2017-07-24 15:51 | Cardiology Report ---
APPROVED REPORT EKG Measurement Heart [id number] Normal sinus rhythm Possible Left atrial enlargement Left axis deviation Abnormal ECG
[2017-07-24] MEDS ORDERED: Miralax 17gm pkt ORAL PRN ×3 (17:30→21:30)
[2017-07-24] MEDS ORDERED: Vancomycin 1250mg/D5W 250ml 250 ML IVPB SCH ×2 (18:00)
[2017-07-24] MEDS: Vancomycin 1250mg/D5W 250ml 250 ML IVPB SCH (18:14)
[2017-07-24] MEDS: Heparin 5000 units/ml inj SUBQ SCH (21:00)
[2017-07-24] MEDS: Cefepime HCl 1 GM in D5W 55 ML IV SCH (21:04)
--- NOTE | 2017-07-24 23:32 | Infectious Diseases Prog Note ---
Assessment/Plan Assessment/Plan ASSESSMENT: 77 y/o male with: // Fever ?malignant - resolved, no leukocytosis, cultures NGTD ( on steroids, probable malignancy contributing ) - UA(-), CXR NAF // Brain lesions - mets > infectious ?primary - MRI Brain: Two intra-axial, cystic rim-enhancing lesions within the frontal lobes. Differential diagnosis includes metastatic neoplasm and infection. However, favor metastatic neoplasm. Would consider acute cerebritis/ abscess if the patient is immunocompromised (e.g. HIV-positive). Moderate vasogenic edema left frontal lobe worse than right with trace left right midline shift and moderate mass effect on the anterior horn of left lateral ventricle. No associated hemorrhage. - h/o pancreatic CA SP whipple // Acute encephalopathy 2/2 above // Abnormal sclerosis and heterogeneity of the T9 vertebra, suspicious for metastatic neoplasm ?primary // h/o pancreatic CA - CT A/P: No evidence of metastatic neoplasm within the chest abdomen or pelvis otherwise // TCP // NKDA // Full Code PLAN: - continue empiric IV vancomycin, cefepime d# 3 pending cultures - check HIV, toxoplasma - steroids per neuro - onc eval - f/u cultures - f/u malignancy w/u - monitor CBC, temperatures - monitor BMP Subjective Allergies: Coded Allergies: No Known Allergies (Unverified , 04/25/13) UNABLE TO ASSESS (Unverified , 07/22/17) Subjective fevers resolved encephalopathic imaging noted Objective Vital Signs Last 24 Hour Vital Signs Date Time Temp Pulse Resp B/P (MAP) Pulse Ox O2 Delivery O2 Flow Rate FiO2 07/24/17 22:57 97.5 51 19 149/81 98 Room Air 07/24/17 19:43 97.9 56 20 142/80 98 Room Air 07/24/17 17:00 96.8 65 20 142/89 99 Room Air 07/24/17 16:07 97.0 68 20 145/92 99 Room Air 07/24/17 11:56 97.2 69 20 144/83 99 Room Air 07/24/17 08:51 97.0 70 18 135/82 96 Room Air 07/24/17 06:46 70 17 Room Air 07/24/17 04:00 97.5 69 20 135/71 98 Room Air 07/24/17 00:20 97.4 64 19 140/78 99 Room Air Height (Feet): 6 Height (Inches): 0.00 Weight (Pounds): 180 General Appearance: no acute distress Respiratory/Chest: no respiratory distress Cardiovascular: normal rate, regular rhythm Abdomen: normal bowel sounds, soft, non tender, non distended Microbiology Date/Time Source Procedure Growth Status 07/22/17 16:35 Blood Blood Culture - Preliminary NO GROWTH AFTER 24 HOURS Resulted 07/22/17 16:27 Blood Blood Culture - Preliminary NO GROWTH AFTER 24 HOURS Resulted Current Medications Medications (Trade) Dose Ordered Sig/Rory Route PRN Reason Start Time Stop Time Status Last Admin Dose Admin Acetaminophen (Tylenol) 650 mg Q4H PRN ORAL fever 07/24/17 17:30 08/21/17 21:29 Al Hydroxide/Mg Hydroxide (Mylanta II) 30 ml Q6H PRN ORAL dyspepsia 07/24/17 17:30 08/21/17 17:29 Albuterol/ Ipratropium (DuoNeb 0.5-3(2.5)mg/3ml) 3 ml Q4H PRN HHN Shortness of Breath 07/24/17 17:30 07/27/17 21:29 Cefepime HCl 1 gm/ Dextrose 55 ml @ 110 mls/hr EVERY 12 HOURS IV 07/24/17 21:00 07/30/17 08:59 07/24/17 21:04 Dexamethasone Sodium Phosphate (Decadron 4mg/ml vial) 4 mg Q6HR IVP 07/24/17 18:00 08/22/17 17:59 07/24/17 18:13 Heparin Sodium (Porcine) (Heparin 5000 units/ml) 5,000 units EVERY 12 HOURS SUBQ 07/24/17 21:00 08/22/17 08:59 Lansoprazole (Prevacid) 15 mg DAILY ORAL 07/25/17 09:00 08/22/17 15:29 Nitroglycerin (Ntg) 0.4 mg Q5MIN X 3 DOSES PRN SL Prn Chest Pain 07/24/17 17:00 08/21/17 21:29 Ondansetron HCl (Zofran) 4 mg Q6H PRN IVP Nausea & Vomiting 07/24/17 17:30 08/21/17 17:29 Polyethylene Glycol (Miralax) 17 gm DAILYPRN PRN ORAL Constipation 07/24/17 17:30 08/21/17 17:29 Promethazine HCl/ Codeine (Phenergan with Codeine) 5 ml Q4H PRN ORAL For Cough 07/24/17 17:30 08/21/17 21:29 Temazepam (Restoril) 15 mg HSPRN PRN ORAL Insomnia 07/24/17 17:30 07/29/17 17:29 Vancomycin HCl (Vanco rx to dose) 1 ea DAILY PRN MISC Per rx protocol 07/25/17 09:00 08/21/17 21:29 Vancomycin HCl/ Dextrose 250 ml @ 166.667 mls/hr Q24H IVPB 07/24/17 18:00 07/28/17 17:59 07/24/17 18:14 JAVAN REED Jul 24, 2017 23:32
[2017-07-25] VITALS (8 sets, daily range): BP systolic 105–149; BP diastolic 53–82
[2017-07-25] MEDS: Dexamethasone 4mg/ml vial IVP SCH ×6 (00:31→23:30)
[2017-07-25 07:46] LABS: MEAN CORPUSCULAR HEMOGLOBIN 30.7 PG (27.0-31.0); MEAN CORPUSCULAR HGB CONC 32.2 G/DL (32.0-36.0); MEAN CORPUSCULAR VOLUME 95 FL (80-99); MEAN PLATELET VOLUME 12.4 FL (6.5-10.1); PLATELET COUNT 145 K/UL (150-450); RED CELL DISTRIBUTION WIDTH 12.4 % (11.6-14.8); WHITE BLOOD COUNT 10.3 K/UL (4.8-10.8)
[2017-07-25 08:51] LABS: ALANINE AMINOTRANSFERASE 24 U/L (12-78); ALBUMIN/GLOBULIN RATIO 1.1 (1.0-2.7); ANION GAP 8 mmol/L (5-15); ASPARTATE AMINO TRANSFERASE 41 U/L (15-37); CARBON DIOXIDE 27 MMOL/L (21-32); CHLORIDE 109 MMOL/L (98-107); CREATININE 1.2 MG/DL (0.55-1.30); CRP QUANT < 0.4 mg/dL (0.00-0.90); MAGNESIUM 1.8 MG/DL (1.8-2.4); PHOSPHORUS 3.7 MG/DL (2.5-4.9); POTASSIUM 4.2 MMOL/L (3.5-5.1); SODIUM 144 MMOL/L (136-145); TOTAL PROTEIN 6.5 G/DL (6.4-8.2)
[2017-07-25 08:53] LABS: BILIRUBIN,DIRECT 0.3 MG/DL (0.0-0.3)
[2017-07-25] MEDS: Lansoprazole 15mg cap ORAL SCH (08:59)
[2017-07-25] MEDS: Heparin 5000 units/ml inj SUBQ SCH ×2 (09:00→20:52)
[2017-07-25] MEDS: Cefepime HCl 1 GM in D5W 55 ML IV SCH ×2 (09:00→20:52)
--- NOTE | 2017-07-25 09:01 | Consultation ---
DATE OF CONSULTATION: 07/24/2017 HEMATOLOGY/ONCOLOGY CONSULTATION CONSULTING PHYSICIAN: Mike Figueroa M.D. REQUESTING PHYSICIAN: Devendra Aguero M.D. REASON FOR CONSULTATION: Evaluation of thrombocytopenia as well as failure to thrive. IDENTIFICATION DATA: Dear Dr. Aguero, The patient is a pleasant 77-year-old male with past medical history significant for surgery on abdomen approximately 10 years ago, malignancy removed at that time. Diagnosed with pancreatic cancer, stable at that time. No alcohol or illicit drug use. Also, he has history of scrotal hematoma. Reviewed the patient's records back in 2012 and again was admitted for the AR at that time. At this time, Neurology Service was consulted for further evaluation and treatment as well as surgical team and ID team, the patient was noted to be anemic. PAST MEDICAL HISTORY: Malignancy, unknown source, status post surgery x2 in August and December. PAST SURGICAL HISTORY: Surgery noted in the past. ALLERGIES: No known drug allergies. SOCIAL HISTORY: Unknown. FAMILY HISTORY: Noncontributory. REVIEW OF SYSTEMS: Unable to obtain. The patient is unreliable. PHYSICAL EXAMINATION: GENERAL: In no distress. VITAL SIGNS: Reviewed. PULMONARY: Decreased breath sounds. CARDIOVASCULAR: Regular rate. No S3 or S4. ABDOMEN: Soft, nontender, and nondistended. EXTREMITIES: 1+ edema. LABORATORY DATA: WBC 10.3, hemoglobin 12, hematocrit 37, and platelet count 136,000. ESR . BUN of 29 and creatinine 1.2. Percent saturation 47, TIBC 211. Albumin 3.8. INR 1.1. SEROLOGY: . ASSESSMENT AND RECOMMENDATIONS: 1. Intracranial mass. 2. History of pancreatic cancer. We obtained imaging including brain MRI, which shows rim-enhancing lesion in the frontal lobes. Differential diagnosis includes metastatic neoplasm versus infection. Common tumors that go the brain include lymphoma, prostate, lungs, breast, potentially thyroid, head and neck. At this time, CT of the chest, abdomen, and pelvis completed. Currently negative. Tumor markers pending. Also negative at this time. We will send for SPEP and UPEP. However, again in the setting of difficult to obtain diagnosis, recommend to obtain [facility] records. I cannot obtain [facility] records physician who has privileges at [facility] to see what kind of cancer removed, which was probably helps us the most in figuring out the type of tumor that is having intracranial lesions. 3. Thrombocytopenia, likely secondary to reactive process. Currently, platelet count 136,000. 4. Anemia secondary to chronic disease. 5. Coagulopathy. Prothrombin time is elevated indicating intrinsic pathway deficit with coagulation cascade. 6. History of malignancy of the pancreas. CA 19-9 is pending at this time. I appreciate the consultation and recommendation by Neurology and ID team. Mike Figueroa M.D. DR: JENNIFER JOB#: [id number] CC:
[2017-07-25 09:30] LABS: BAND NEUTROPHILS % (MANUAL) 0 % (0-8); BASOPHILS % (MANUAL) 0 % (0-2); EOSINOPHILS % (MANUAL) 0 % (0-3); HYPOCHROMASIA 1+; LYMPHOCYTES % (MANUAL) 10 % (20-45); NEUTROPHILS % (MANUAL) 88 % (45-75); PLATELET ESTIMATE ADEQUATE; PLATELET MORPHOLOGY NORMAL; TOTAL CELLS COUNTED 100
[2017-07-25 09:51] LABS: ERYTHROCYTE SEDIMENTATION RATE 3 MM/HR (0-20)
[2017-07-25 11:50] LABS: OTHERS PATHOLOGIST COMMENT
--- NOTE | 2017-07-25 11:55 | General Progress Note ---
Assessment/Plan Assessment/Plan 1. Intracranial mass. 2. History of pancreatic cancer. We obtained imaging including brain MRI, which shows rim-enhancing lesion in the frontal lobes. Differential diagnosis includes metastatic neoplasm versus infection. We will send for SPEP and UPEP. However, again in the setting of difficult to obtain diagnosis, recommend to obtain [facility] [place]. 3. Thrombocytopenia, likely secondary to reactive process. 4. Anemia secondary to chronic disease. 5. Coagulopathy. Prothrombin time is elevated indicating intrinsic pathway deficit with coagulation cascade. 6. History of malignancy of the pancreas. CA 19-9 is pending Subjective ROS Limited/Unobtainable: Yes Allergies: Coded Allergies: No Known Allergies (Unverified , 04/25/13) UNABLE TO ASSESS (Unverified , 07/22/17) Objective Last 24 Hour Vital Signs Date Time Temp Pulse Resp B/P (MAP) Pulse Ox O2 Delivery O2 Flow Rate FiO2 07/25/17 08:13 78 17 Room Air 07/25/17 07:57 97.9 63 20 105/53 97 Room Air 07/25/17 05:13 96.7 60 19 145/60 98 Room Air 07/25/17 04:00 97.5 64 19 145/61 97 Room Air 07/25/17 00:33 97.5 51 19 149/65 98 Room Air 07/24/17 22:57 97.5 51 19 149/81 98 Room Air 07/24/17 19:43 97.9 56 20 142/80 98 Room Air 07/24/17 17:00 96.8 65 20 142/89 99 Room Air 07/24/17 16:07 97.0 68 20 145/92 99 Room Air 07/24/17 11:56 97.2 69 20 144/83 99 Room Air Intake and Output 07/25/17 07/26/17 19:00 07:00 Intake Total 175 ml Balance 175 ml Intake Oral 120 ml IV Total 55 ml # Voids 1 Laboratory Tests 07/25/17 05:10: White Blood Count 10.3, Red Blood Count 3.80L, Hemoglobin 11.7L, Hematocrit 36.2L, Mean Corpuscular Volume 95, Mean Corpuscular Hemoglobin 30.7, Mean Corpuscular Hemoglobin Concent 32.2, Red Cell Distribution Width 12.4, Platelet Count 145L, Mean Platelet Volume 12.4H, Neutrophils (%) (Auto) , Lymphocytes (% ) (Auto) , Monocytes (%) (Auto) , Eosinophils (%) (Auto) , Basophils (%) (Auto) , Differential Total Cells Counted 100, Neutrophils % (Manual) 88H, Lymphocytes % (Manual) 10L, Monocytes % (Manual) 2, Eosinophils % (Manual) 0, Basophils % ( Manual) 0, Band Neutrophils 0, Platelet Estimate Adequate, Platelet Morphology Normal, Hypochromasia 1+, Erythrocyte Sedimentation Rate 3, Sodium Level 144, Potassium Level 4.2, Chloride Level 109H, Carbon Dioxide Level 27, Anion Gap 8, Blood Urea Nitrogen 27H, Creatinine 1.2, Estimat Glomerular Filtration Rate , Glucose Level 147H, Calcium Level 9.0, Phosphorus Level 3.7, Magnesium Level 1.8 , Total Bilirubin 2.0H, Direct Bilirubin 0.3, Aspartate Amino Transf (AST/SGOT) 41H, Alanine Aminotransferase (ALT/SGPT) 24, Alkaline Phosphatase 71, C- Reactive Protein, Quantitative < 0.4, Total Protein 6.5, Albumin 3.4, Globulin 3.1, Albumin/Globulin Ratio 1.1, HIV (1&2) Antibody Rapid Negative, Toxoplasma IgG Antibody [Pending], Toxoplasma IgM Antibody [Pending] Height (Feet): 6 Height (Inches): 0.00 Weight (Pounds): 180 General Appearance: no apparent distress Neck: normal inspection Abdomen: soft Edema: mild edema Skin: warm/dry Mike Figueroa Jul 25, 2017 11:55
--- NOTE | 2017-07-25 13:38 | Neurology Progress Note ---
Interim History Interim History ROS Limited/Unobtainable: Yes Complaints: feel ok Events: now more coherent Objective Physical Exam Last Vital Signs Date Time Temp Pulse Resp B/P (MAP) Pulse Ox O2 Delivery O2 Flow Rate FiO2 07/25/17 12:05 98.0 79 20 110/71 98 Room Air Laboratory Tests Test 07/25/17 05:10 White Blood Count 10.3 K/UL (4.8-10.8) Red Blood Count 3.80 M/UL (4.70-6.10) L Hemoglobin 11.7 G/DL (14.2-18.0) L Hematocrit 36.2 % (42.0-52.0) L Mean Corpuscular Volume 95 FL (80-99) Mean Corpuscular Hemoglobin 30.7 PG (27.0-31.0) Mean Corpuscular Hemoglobin Concent 32.2 G/DL (32.0-36.0) Red Cell Distribution Width 12.4 % (11.6-14.8) Platelet Count 145 K/UL (150-450) L Mean Platelet Volume 12.4 FL (6.5-10.1) H Neutrophils (%) (Auto) % (45.0-75.0) Lymphocytes (%) (Auto) % (20.0-45.0) Monocytes (%) (Auto) % (1.0-10.0) Eosinophils (%) (Auto) % (0.0-3.0) Basophils (%) (Auto) % (0.0-2.0) Differential Total Cells Counted 100 Neutrophils % (Manual) 88 % (45-75) H Lymphocytes % (Manual) 10 % (20-45) L Monocytes % (Manual) 2 % (1-10) Eosinophils % (Manual) 0 % (0-3) Basophils % (Manual) 0 % (0-2) Band Neutrophils 0 % (0-8) Platelet Estimate Adequate Platelet Morphology Normal Hypochromasia 1+ Erythrocyte Sedimentation Rate 3 MM/HR (0-20) Sodium Level 144 MMOL/L (136-145) Potassium Level 4.2 MMOL/L (3.5-5.1) Chloride Level 109 MMOL/L (98-107) H Carbon Dioxide Level 27 MMOL/L (21-32) Anion Gap 8 mmol/L (5-15) Blood Urea Nitrogen 27 mg/dL (7-18) H Creatinine 1.2 MG/DL (0.55-1.30) Estimat Glomerular Filtration Rate mL/min (>60) Glucose Level 147 MG/DL (74-106) H Calcium Level 9.0 MG/DL (8.5-10.1) Phosphorus Level 3.7 MG/DL (2.5-4.9) Magnesium Level 1.8 MG/DL (1.8-2.4) Total Bilirubin 2.0 MG/DL (0.2-1.0) H Direct Bilirubin 0.3 MG/DL (0.0-0.3) Aspartate Amino Transf (AST/SGOT) 41 U/L (15-37) H Alanine Aminotransferase (ALT/SGPT) 24 U/L (12-78) Alkaline Phosphatase 71 U/L (46-116) C-Reactive Protein, Quantitative < 0.4 mg/dL (0.00-0.90) Total Protein 6.5 G/DL (6.4-8.2) Albumin 3.4 G/DL (3.4-5.0) Globulin 3.1 g/dL Albumin/Globulin Ratio 1.1 (1.0-2.7) HIV (1&2) Antibody Rapid Negative (NEGATIVE) Toxoplasma IgG Antibody Pending Toxoplasma IgM Antibody Pending General: well developed, no acute distress, other - cachectic Head: normocophalic, atraumatic Neck: no rigidity Neurologic Exam Mental Status: awake, alert, other - more coherent cooperative Speech: normal speech Language: normal language Cranial Nerve II: fundus normal Cranial Nerves III, IV, : PERRLA, EOMI, pupils Cranial Nerve V: normal facial sensations Cranial Nerve VII: no facial asymmetry Cranial Nerve VIII: no nystagmus Cranial Nerve IX: gag response Cranial Nerve XI: trapezii function normal Cranial Nerve XII: tongue midline Motor System: no involuntary movement, no muscle wasting Sensory: normal pinprick Coordination: normal finger to nose bilaterally Deep Tendon Reflexes: 0 bicep (L), 0 bicep (R), 0 tricep (L), 0 tricep (R), 0 brachioradialis (L), 0 brachioradialis (R), 0 knee (L), 0 knee (R), 0 ankle (L) , 0 ankle (R) Reflexes: mute plantar (L), mute plantar (R) Stance: normal Gait: stable Impression/Recommendations Problems: (1) brain and bone metastasis. (2) History of malignant neoplasm of pancreas Status: stable, unchanged Recommendations #[id number] oncology/neurosurgery assesment----.pending at [facility] steroids/keppra/fall precaution d/w family BARBER SERRANO Jul 25, 2017 13:38
[2017-07-25] MEDS ORDERED: NS 500ML IV ONE (15:53)
[2017-07-25] MEDS ORDERED: Tubing IV Secondary IV ONE ×2 (15:53→19:43)
[2017-07-25] MEDS: Vancomycin 1250mg/D5W 250ml 250 ML IVPB SCH (19:38)
--- NOTE | 2017-07-25 21:09 | Infectious Diseases Prog Note ---
Assessment/Plan Assessment/Plan ASSESSMENT: 77 y/o male with: // Fever ?malignant - resolved, no leukocytosis, cultures NGTD ( on steroids, probable malignancy contributing ) - UA(-), CXR NAF // Brain lesions - mets > infectious ?primary - MRI Brain: Two intra-axial, cystic rim-enhancing lesions within the frontal lobes. Differential diagnosis includes metastatic neoplasm and infection. However, favor metastatic neoplasm. Would consider acute cerebritis/ abscess if the patient is immunocompromised (e.g. HIV-positive). Moderate vasogenic edema left frontal lobe worse than right with trace left right midline shift and moderate mass effect on the anterior horn of left lateral ventricle. No associated hemorrhage. - h/o pancreatic CA SP whipple // Acute encephalopathy 2/2 above // Abnormal sclerosis and heterogeneity of the T9 vertebra, suspicious for metastatic neoplasm ?primary // h/o pancreatic CA - CT A/P: No evidence of metastatic neoplasm within the chest abdomen or pelvis otherwise // TCP // Negative HIV // NKDA // Full Code PLAN: - continue empiric IV vancomycin, cefepime d# 4 / 5 - f/u toxoplasma - steroids per neuro - onc eval - f/u cultures - f/u malignancy w/u - monitor CBC, temperatures - monitor BMP Subjective Allergies: Coded Allergies: No Known Allergies (Unverified , 04/25/13) UNABLE TO ASSESS (Unverified , 07/22/17) Subjective fevers resolved encephalopathic Objective Vital Signs Last 24 Hour Vital Signs Date Time Temp Pulse Resp B/P (MAP) Pulse Ox O2 Delivery O2 Flow Rate FiO2 07/25/17 20:32 97.7 53 20 146/82 97 Room Air 07/25/17 15:48 97.4 55 20 128/80 96 Room Air 07/25/17 12:05 98.0 79 20 110/71 98 Room Air 07/25/17 08:13 78 17 Room Air 07/25/17 07:57 97.9 63 20 105/53 97 Room Air 07/25/17 05:13 96.7 60 19 145/60 98 Room Air 07/25/17 04:00 97.5 64 19 145/61 97 Room Air 07/25/17 00:33 97.5 51 19 149/65 98 Room Air 07/24/17 22:57 97.5 51 19 149/81 98 Room Air Height (Feet): 6 Height (Inches): 0.00 Weight (Pounds): 180 General Appearance: no acute distress Respiratory/Chest: no respiratory distress Cardiovascular: normal rate, regular rhythm Abdomen: normal bowel sounds, soft, non tender, non distended Laboratory Tests Test 07/25/17 05:10 07/25/17 18:15 White Blood Count 10.3 K/UL (4.8-10.8) Red Blood Count 3.80 M/UL (4.70-6.10) L Hemoglobin 11.7 G/DL (14.2-18.0) L Hematocrit 36.2 % (42.0-52.0) L Mean Corpuscular Volume 95 FL (80-99) Mean Corpuscular Hemoglobin 30.7 PG (27.0-31.0) Mean Corpuscular Hemoglobin Concent 32.2 G/DL (32.0-36.0) Red Cell Distribution Width 12.4 % (11.6-14.8) Platelet Count 145 K/UL (150-450) L Mean Platelet Volume 12.4 FL (6.5-10.1) H Neutrophils (%) (Auto) % (45.0-75.0) Lymphocytes (%) (Auto) % (20.0-45.0) Monocytes (%) (Auto) % (1.0-10.0) Eosinophils (%) (Auto) % (0.0-3.0) Basophils (%) (Auto) % (0.0-2.0) Differential Total Cells Counted 100 Neutrophils % (Manual) 88 % (45-75) H Lymphocytes % (Manual) 10 % (20-45) L Monocytes % (Manual) 2 % (1-10) Eosinophils % (Manual) 0 % (0-3) Basophils % (Manual) 0 % (0-2) Band Neutrophils 0 % (0-8) Platelet Estimate Adequate Platelet Morphology Normal Hypochromasia 1+ Erythrocyte Sedimentation Rate 3 MM/HR (0-20) Sodium Level 144 MMOL/L (136-145) Potassium Level 4.2 MMOL/L (3.5-5.1) Chloride Level 109 MMOL/L (98-107) H Carbon Dioxide Level 27 MMOL/L (21-32) Anion Gap 8 mmol/L (5-15) Blood Urea Nitrogen 27 mg/dL (7-18) H Creatinine 1.2 MG/DL (0.55-1.30) Estimat Glomerular Filtration Rate mL/min (>60) Glucose Level 147 MG/DL (74-106) H Calcium Level 9.0 MG/DL (8.5-10.1) Phosphorus Level 3.7 MG/DL (2.5-4.9) Magnesium Level 1.8 MG/DL (1.8-2.4) Total Bilirubin 2.0 MG/DL (0.2-1.0) H Direct Bilirubin 0.3 MG/DL (0.0-0.3) Aspartate Amino Transf (AST/SGOT) 41 U/L (15-37) H Alanine Aminotransferase (ALT/SGPT) 24 U/L (12-78) Alkaline Phosphatase 71 U/L (46-116) C-Reactive Protein, Quantitative < 0.4 mg/dL (0.00-0.90) Total Protein 6.5 G/DL (6.4-8.2) Albumin 3.4 G/DL (3.4-5.0) Globulin 3.1 g/dL Albumin/Globulin Ratio 1.1 (1.0-2.7) HIV (1&2) Antibody Rapid Negative (NEGATIVE) Toxoplasma IgG Antibody Pending Toxoplasma IgM Antibody Pending Vancomycin Level Trough 9.2 ug/mL (5.0-12.0) Current Medications Medications (Trade) Dose Ordered Sig/Rory Route PRN Reason Start Time Stop Time Status Last Admin Dose Admin Acetaminophen (Tylenol) 650 mg Q4H PRN ORAL fever 07/24/17 17:30 08/21/17 21:29 Al Hydroxide/Mg Hydroxide (Mylanta II) 30 ml Q6H PRN ORAL dyspepsia 07/24/17 17:30 08/21/17 17:29 Albuterol/ Ipratropium (DuoNeb 0.5-3(2.5)mg/3ml) 3 ml Q4H PRN HHN Shortness of Breath 07/24/17 17:30 07/27/17 21:29 Cefepime HCl 1 gm/ Dextrose 55 ml @ 110 mls/hr EVERY 12 HOURS IV 07/24/17 21:00 07/30/17 08:59 07/25/17 20:52 Dexamethasone Sodium Phosphate (Decadron 4mg/ml vial) 2 mg Q6HR IVP 07/25/17 18:00 08/24/17 17:59 07/25/17 17:59 Heparin Sodium (Porcine) (Heparin 5000 units/ml) 5,000 units EVERY 12 HOURS SUBQ 07/24/17 21:00 08/22/17 08:59 Lansoprazole (Prevacid) 15 mg DAILY ORAL 07/25/17 09:00 08/22/17 15:29 07/25/17 08:59 Nitroglycerin (Ntg) 0.4 mg Q5MIN X 3 DOSES PRN SL Prn Chest Pain 07/24/17 17:00 08/21/17 21:29 Ondansetron HCl (Zofran) 4 mg Q6H PRN IVP Nausea & Vomiting 07/24/17 17:30 08/21/17 17:29 Polyethylene Glycol (Miralax) 17 gm DAILYPRN PRN ORAL Constipation 07/24/17 17:30 08/21/17 17:29 Promethazine HCl/ Codeine (Phenergan with Codeine) 5 ml Q4H PRN ORAL For Cough 07/24/17 17:30 08/21/17 21:29 Temazepam (Restoril) 15 mg HSPRN PRN ORAL Insomnia 07/24/17 17:30 07/29/17 17:29 Vancomycin HCl (Vanco rx to dose) 1 ea DAILY PRN MISC Per rx protocol 07/25/17 09:00 08/21/17 21:29 Vancomycin HCl/ Dextrose 250 ml @ 166.667 mls/hr Q24H IVPB 07/24/17 18:00 07/28/17 17:59 07/25/17 19:38 JAVAN REED Jul 25, 2017 21:08
--- NOTE | 2017-07-25 22:10 | Pulmonology Progress Note ---
Assessment/Plan Problems: (1) Sepsis (2) Intracranial mass (3) History of malignant neoplasm of pancreas Assessment/Plan possible bone mets on CT scan Oncology consult afebrile tried to reach family members, nobody answering the phone All medications and treatment were reviewed on steroids and keppra. / continue abx as per ID lateral transfer to [facility] is impossible. pt might get discharged to a senior care [facility]. or family might want to take him home Subjective ROS Limited/Unobtainable: No Interval Events: no new complains Constitutional: Reports: no symptoms HEENT: Repors: no symptoms Respiratory: Reports: no symptoms Allergies: Coded Allergies: No Known Allergies (Unverified , 04/25/13) UNABLE TO ASSESS (Unverified , 07/22/17) Objective Last 24 Hour Vital Signs Date Time Temp Pulse Resp B/P (MAP) Pulse Ox O2 Delivery O2 Flow Rate FiO2 07/25/17 20:32 97.7 53 20 146/82 97 Room Air 07/25/17 19:59 63 18 Room Air 07/25/17 15:48 97.4 55 20 128/80 96 Room Air 07/25/17 12:05 98.0 79 20 110/71 98 Room Air 07/25/17 08:13 78 17 Room Air 07/25/17 07:57 97.9 63 20 105/53 97 Room Air 07/25/17 05:13 96.7 60 19 145/60 98 Room Air 07/25/17 04:00 97.5 64 19 145/61 97 Room Air 07/25/17 00:33 97.5 51 19 149/65 98 Room Air 07/24/17 22:57 97.5 51 19 149/81 98 Room Air Intake and Output 07/25/17 07/26/17 19:00 07:00 Intake Total 655 ml 166.667 ml Balance 655 ml 166.667 ml Intake Oral 600 ml IV Total 55 ml 166.667 ml # Voids 4 # Bowel Movements 1 General Appearance: WD/WN HEENT: normocephalic, atraumatic Respiratory/Chest: chest wall non-tender, lungs clear Cardiovascular: normal peripheral pulses, normal rate Abdomen: normal bowel sounds, soft, non tender Genitourinary: normal external genitalia Extremities: no clubbing Neurologic/Psychiatric: sugar mixer II-XII grossly normal Laboratory Tests 07/25/17 05:10: White Blood Count 10.3, Red Blood Count 3.80L, Hemoglobin 11.7L, Hematocrit 36.2L, Mean Corpuscular Volume 95, Mean Corpuscular Hemoglobin 30.7, Mean Corpuscular Hemoglobin Concent 32.2, Red Cell Distribution Width 12.4, Platelet Count 145L, Mean Platelet Volume 12.4H, Neutrophils (%) (Auto) , Lymphocytes (% ) (Auto) , Monocytes (%) (Auto) , Eosinophils (%) (Auto) , Basophils (%) (Auto) , Differential Total Cells Counted 100, Neutrophils % (Manual) 88H, Lymphocytes % (Manual) 10L, Monocytes % (Manual) 2, Eosinophils % (Manual) 0, Basophils % ( Manual) 0, Band Neutrophils 0, Platelet Estimate Adequate, Platelet Morphology Normal, Hypochromasia 1+, Erythrocyte Sedimentation Rate 3, Sodium Level 144, Potassium Level 4.2, Chloride Level 109H, Carbon Dioxide Level 27, Anion Gap 8, Blood Urea Nitrogen 27H, Creatinine 1.2, Estimat Glomerular Filtration Rate , Glucose Level 147H, Calcium Level 9.0, Phosphorus Level 3.7, Magnesium Level 1.8 , Total Bilirubin 2.0H, Direct Bilirubin 0.3, Aspartate Amino Transf (AST/SGOT) 41H, Alanine Aminotransferase (ALT/SGPT) 24, Alkaline Phosphatase 71, C- Reactive Protein, Quantitative < 0.4, Total Protein 6.5, Albumin 3.4, Globulin 3.1, Albumin/Globulin Ratio 1.1, HIV (1&2) Antibody Rapid Negative, Toxoplasma IgG Antibody [Pending], Toxoplasma IgM Antibody [Pending] 07/25/17 18:15: Vancomycin Level Trough 9.2 Current Medications Medications (Trade) Dose Ordered Sig/Rory Route PRN Reason Start Time Stop Time Status Last Admin Dose Admin Acetaminophen (Tylenol) 650 mg Q4H PRN ORAL fever 07/24/17 17:30 08/21/17 21:29 Al Hydroxide/Mg Hydroxide (Mylanta II) 30 ml Q6H PRN ORAL dyspepsia 07/24/17 17:30 08/21/17 17:29 Albuterol/ Ipratropium (DuoNeb 0.5-3(2.5)mg/3ml) 3 ml Q4H PRN HHN Shortness of Breath 07/24/17 17:30 07/27/17 21:29 Cefepime HCl 1 gm/ Dextrose 55 ml @ 110 mls/hr EVERY 12 HOURS IV 07/24/17 21:00 07/30/17 08:59 07/25/17 20:52 Dexamethasone Sodium Phosphate (Decadron 4mg/ml vial) 2 mg Q6HR IVP 07/25/17 18:00 08/24/17 17:59 07/25/17 17:59 Heparin Sodium (Porcine) (Heparin 5000 units/ml) 5,000 units EVERY 12 HOURS SUBQ 07/24/17 21:00 08/22/17 08:59 Lansoprazole (Prevacid) 15 mg DAILY ORAL 07/25/17 09:00 08/22/17 15:29 07/25/17 08:59 Nitroglycerin (Ntg) 0.4 mg Q5MIN X 3 DOSES PRN SL Prn Chest Pain 07/24/17 17:00 08/21/17 21:29 Ondansetron HCl (Zofran) 4 mg Q6H PRN IVP Nausea & Vomiting 07/24/17 17:30 08/21/17 17:29 Polyethylene Glycol (Miralax) 17 gm DAILYPRN PRN ORAL Constipation 07/24/17 17:30 08/21/17 17:29 Promethazine HCl/ Codeine (Phenergan with Codeine) 5 ml Q4H PRN ORAL For Cough 07/24/17 17:30 08/21/17 21:29 Temazepam (Restoril) 15 mg HSPRN PRN ORAL Insomnia 07/24/17 17:30 07/29/17 17:29 Vancomycin HCl (Vanco rx to dose) 1 ea DAILY PRN MISC Per rx protocol 07/25/17 09:00 08/21/17 21:29 Vancomycin HCl/ Dextrose 250 ml @ 166.667 mls/hr Q24H IVPB 07/24/17 18:00 07/28/17 17:59 07/25/17 19:38 JOE PROCTOR Jul 25, 2017 22:10
[2017-07-26 04:20] VITALS: BP 140/86
[2017-07-26] MEDS: Dexamethasone 4mg/ml vial IVP SCH ×3 (05:24→17:14)
[2017-07-26 08:00] VITALS: BP 136/74
[2017-07-26] MEDS: Heparin 5000 units/ml inj SUBQ SCH ×2 (09:00→20:48)
[2017-07-26] MEDS: Cefepime HCl 1 GM in D5W 55 ML IV SCH (09:02)
[2017-07-26] MEDS: Lansoprazole 15mg cap ORAL SCH (09:02)
--- NOTE | 2017-07-26 09:21 | Pulmonology Progress Note ---
Assessment/Plan Assessment/Plan ASSESMENT Acute toxic metabolic encephalopathy 2 to brain lesion intracranial mass sepsis H of pancreatic Ca mild pulmonary HTN enlarged prostate PLAN OF CARE MS floor MRI brain noted CT A/P noted abx ID follows stool C dif negative blood cx negative Neuro follows Oncology/neurosurgery assessment----.pending at [facility] steroids started Keppra started then stopped by nephro seizure precautions fall precautions cancer tumor markers WNL- Ca15-3, Ca125, Ca 27-29 ECHO with pEF 60-65% and RVSP of 41 c/w mild pulmonary HTN renal US+ enlarged prostate DVT prophylaxis case discussed and evaluated by supervising physician Subjective Allergies: Coded Allergies: No Known Allergies (Unverified , 04/25/13) UNABLE TO ASSESS (Unverified , 07/22/17) Subjective awake, responsive son at the bedside Objective Last 24 Hour Vital Signs Date Time Temp Pulse Resp B/P (MAP) Pulse Ox O2 Delivery O2 Flow Rate FiO2 07/26/17 04:20 97.2 49 20 140/86 98 Room Air 07/25/17 23:33 97.7 63 20 142/77 98 Room Air 07/25/17 20:32 97.7 53 20 146/82 97 Room Air 07/25/17 19:59 63 18 Room Air 07/25/17 15:48 97.4 55 20 128/80 96 Room Air 07/25/17 12:05 98.0 79 20 110/71 98 Room Air General Appearance: other - chronically ill looking male in NAD HEENT: normocephalic, atraumatic, anicteric Respiratory/Chest: lungs clear, no respiratory distress Cardiovascular: normal rate, regular rhythm, no JVD Abdomen: normal bowel sounds, soft, non tender Genitourinary: normal external genitalia Extremities: no edema Neurologic/Psychiatric: abnormal gait, alert, responsive Musculoskeletal: atrophy Microbiology Date/Time Source Procedure Growth Status 07/24/17 23:35 Stool Clostridium difficile Toxin Assay - Final Complete Laboratory Tests 07/25/17 18:15: Vancomycin Level Trough 9.2 Current Medications Medications (Trade) Dose Ordered Sig/Rory Route PRN Reason Start Time Stop Time Status Last Admin Dose Admin Acetaminophen (Tylenol) 650 mg Q4H PRN ORAL fever 07/24/17 17:30 08/21/17 21:29 Al Hydroxide/Mg Hydroxide (Mylanta II) 30 ml Q6H PRN ORAL dyspepsia 07/24/17 17:30 08/21/17 17:29 Albuterol/ Ipratropium (DuoNeb 0.5-3(2.5)mg/3ml) 3 ml Q4H PRN HHN Shortness of Breath 07/24/17 17:30 07/27/17 21:29 Cefepime HCl 1 gm/ Dextrose 55 ml @ 110 mls/hr EVERY 12 HOURS IV 07/24/17 21:00 07/30/17 08:59 07/26/17 09:02 Dexamethasone Sodium Phosphate (Decadron 4mg/ml vial) 2 mg Q6HR IVP 07/25/17 18:00 08/24/17 17:59 07/26/17 05:24 Heparin Sodium (Porcine) (Heparin 5000 units/ml) 5,000 units EVERY 12 HOURS SUBQ 07/24/17 21:00 08/22/17 08:59 Lansoprazole (Prevacid) 15 mg DAILY ORAL 07/25/17 09:00 08/22/17 15:29 07/26/17 09:02 Nitroglycerin (Ntg) 0.4 mg Q5MIN X 3 DOSES PRN SL Prn Chest Pain 07/24/17 17:00 08/21/17 21:29 Ondansetron HCl (Zofran) 4 mg Q6H PRN IVP Nausea & Vomiting 07/24/17 17:30 08/21/17 17:29 Polyethylene Glycol (Miralax) 17 gm DAILYPRN PRN ORAL Constipation 07/24/17 17:30 08/21/17 17:29 Promethazine HCl/ Codeine (Phenergan with Codeine) 5 ml Q4H PRN ORAL For Cough 07/24/17 17:30 08/21/17 21:29 Temazepam (Restoril) 15 mg HSPRN PRN ORAL Insomnia 07/24/17 17:30 07/29/17 17:29 Vancomycin HCl (Vanco rx to dose) 1 ea DAILY PRN MISC Per rx protocol 07/25/17 09:00 08/21/17 21:29 Vancomycin HCl/ Dextrose 250 ml @ 166.667 mls/hr Q24H IVPB 07/24/17 18:00 07/28/17 17:59 07/25/17 19:38 Shaw (Vanchtein),Gracy WARD Jul 26, 2017 09:21
[2017-07-26 11:58] VITALS: BP 132/80
[2017-07-26] MEDS ORDERED: Albuterol/Ipratropium 3ml neb HHN PRN (12:45)
--- NOTE | 2017-07-26 13:10 | Infectious Diseases Prog Note ---
Assessment/Plan Assessment/Plan ASSESSMENT: 77 y/o male with: // Fever ?malignant - resolved, no leukocytosis, cultures NGTD ( on steroids, probable malignancy contributing ) - UA(-), CXR NAF // Brain lesions - mets > infectious ?primary - MRI Brain: Two intra-axial, cystic rim-enhancing lesions within the frontal lobes. Differential diagnosis includes metastatic neoplasm and infection. However, favor metastatic neoplasm. Would consider acute cerebritis/ abscess if the patient is immunocompromised (e.g. HIV-positive). Moderate vasogenic edema left frontal lobe worse than right with trace left right midline shift and moderate mass effect on the anterior horn of left lateral ventricle. No associated hemorrhage. - h/o pancreatic CA SP whipple // Acute encephalopathy 2/2 above // Abnormal sclerosis and heterogeneity of the T9 vertebra, suspicious for metastatic neoplasm ?primary // h/o pancreatic CA - CT A/P: No evidence of metastatic neoplasm within the chest abdomen or pelvis otherwise // TCP // Negative HIV // NKDA // Full Code PLAN: - DC IV vancomycin, cefepime d# 5 / 5 and monitor pt off of AB Rx - f/u toxoplasma - steroids per neuro - onc eval - f/u cultures - f/u malignancy w/u - monitor CBC, temperatures - monitor BMP Subjective Constitutional: Denies: no symptoms, fever, chills, fatigue, anorexia, drenching sweats, other Allergies: Coded Allergies: No Known Allergies (Unverified , 04/25/13) UNABLE TO ASSESS (Unverified , 07/22/17) Objective Vital Signs Last 24 Hour Vital Signs Date Time Temp Pulse Resp B/P (MAP) Pulse Ox O2 Delivery O2 Flow Rate FiO2 07/26/17 11:58 97.5 50 20 132/80 100 Room Air 07/26/17 10:38 79 16 Room Air 07/26/17 08:00 97.4 47 20 136/74 97 Room Air 07/26/17 04:20 97.2 49 20 140/86 98 Room Air 07/25/17 23:33 97.7 63 20 142/77 98 Room Air 07/25/17 20:32 97.7 53 20 146/82 97 Room Air 07/25/17 19:59 63 18 Room Air 07/25/17 15:48 97.4 55 20 128/80 96 Room Air Height (Feet): 6 Height (Inches): 0.00 Weight (Pounds): 180 HEENT: anicteric Respiratory/Chest: no accessory muscle use Cardiovascular: regularly irregular Abdomen: no organomegaly Skin: no lesions Microbiology Date/Time Source Procedure Growth Status 07/24/17 23:35 Stool Clostridium difficile Toxin Assay - Final Complete Laboratory Tests Test 07/25/17 18:15 Vancomycin Level Trough 9.2 ug/mL (5.0-12.0) Current Medications Medications (Trade) Dose Ordered Sig/Rory Route PRN Reason Start Time Stop Time Status Last Admin Dose Admin Acetaminophen (Tylenol) 650 mg Q4H PRN ORAL fever 07/24/17 17:30 08/21/17 21:29 Al Hydroxide/Mg Hydroxide (Mylanta II) 30 ml Q6H PRN ORAL dyspepsia 07/24/17 17:30 08/21/17 17:29 Albuterol/ Ipratropium (DuoNeb 0.5-3(2.5)mg/3ml) 3 ml Q4H PRN HHN Shortness of Breath 07/26/17 12:45 07/29/17 12:44 Cefepime HCl 1 gm/ Dextrose 55 ml @ 110 mls/hr EVERY 12 HOURS IV 07/24/17 21:00 07/30/17 08:59 07/26/17 09:02 Dexamethasone Sodium Phosphate (Decadron 4mg/ml vial) 2 mg Q6HR IVP 07/25/17 18:00 08/24/17 17:59 07/26/17 11:55 Heparin Sodium (Porcine) (Heparin 5000 units/ml) 5,000 units EVERY 12 HOURS SUBQ 07/24/17 21:00 08/22/17 08:59 Lansoprazole (Prevacid) 15 mg DAILY ORAL 07/25/17 09:00 08/22/17 15:29 07/26/17 09:02 Nitroglycerin (Ntg) 0.4 mg Q5MIN X 3 DOSES PRN SL Prn Chest Pain 07/24/17 17:00 08/21/17 21:29 Ondansetron HCl (Zofran) 4 mg Q6H PRN IVP Nausea & Vomiting 07/24/17 17:30 08/21/17 17:29 Polyethylene Glycol (Miralax) 17 gm DAILYPRN PRN ORAL Constipation 10/18/17 17:30 08/21/17 17:29 Promethazine HCl/ Codeine (Phenergan with Codeine) 5 ml Q4H PRN ORAL For Cough 07/24/17 17:30 08/21/17 21:29 Temazepam (Restoril) 15 mg HSPRN PRN ORAL Insomnia 07/24/17 17:30 07/29/17 17:29 Vancomycin HCl (Vanco rx to dose) 1 ea DAILY PRN MISC Per rx protocol 07/25/17 09:00 08/21/17 21:29 Vancomycin HCl/ Dextrose 250 ml @ 166.667 mls/hr Q24H IVPB 07/24/17 18:00 07/28/17 17:59 07/25/17 19:38 KWAME BERRY M.D. Jul 26, 2017 13:10
[2017-07-26 16:00] VITALS: BP 137/79
--- NOTE | 2017-07-26 17:22 | General Progress Note ---
Assessment/Plan Assessment/Plan 1. Intracranial mass. likely spread from pancreatic cancer. see dr duncan at [facility] 2. History of pancreatic cancer. We obtained imaging including brain MRI, which shows rim-enhancing lesion in the frontal lobes. Differential diagnosis includes metastatic neoplasm versus infection. We will send for SPEP and UPEP. However, again in the setting of difficult to obtain diagnosis, recommend to obtain [facility] records. 3. Thrombocytopenia, likely secondary to reactive process. 4. Anemia secondary to chronic disease. 5. Coagulopathy. Prothrombin time is elevated indicating intrinsic pathway deficit with coagulation cascade. 6. History of malignancy of the pancreas. CA 19-9 is pending Subjective ROS Limited/Unobtainable: Yes Allergies: Coded Allergies: No Known Allergies (Unverified , 04/25/13) UNABLE TO ASSESS (Unverified , 07/22/17) Subjective confused Objective Last 24 Hour Vital Signs Date Time Temp Pulse Resp B/P (MAP) Pulse Ox O2 Delivery O2 Flow Rate FiO2 07/26/17 16:00 97.2 51 18 137/79 99 07/26/17 11:58 97.5 50 20 132/80 100 Room Air 07/26/17 10:38 79 16 Room Air 07/26/17 08:00 97.4 47 20 136/74 97 Room Air 07/26/17 04:20 97.2 49 20 140/86 98 Room Air 07/25/17 23:33 97.7 63 20 142/77 98 Room Air 07/25/17 20:32 97.7 53 20 146/82 97 Room Air 07/25/17 19:59 63 18 Room Air Laboratory Tests 07/25/17 18:15: Vancomycin Level Trough 9.2 Height (Feet): 6 Height (Inches): 0.00 Weight (Pounds): 180 General Appearance: no apparent distress EENT: normal ENT inspection Neck: normal alignment Cardiovascular: regularly irregular Respiratory/Chest: no accessory muscle use Extremities: non-tender Mike Figueroa Jul 26, 2017 17:22
[2017-07-26 20:44] VITALS: BP 159/96
[2017-07-26] MEDS ORDERED: VITAMIN D-32000 UNI1 PO (23:57)
[2017-07-26] MEDS ORDERED: DIPHENOXYLATE-1 EACH PO (23:57)
[2017-07-26] MEDS ORDERED: DIOVAN80 MG ORAL (23:57)
[2017-07-26] MEDS ORDERED: CREON DR 24,001 EACH PO (23:57)
[2017-07-27] VITALS: BP 169/97
[2017-07-27 01:27] VITALS: BP 165/80
[2017-07-27 04:30] LABS: TOXOPLASMA IGG ANTIBODY <3.0 IU/mL (0.0-7.1)
[2017-07-27 04:47] VITALS: BP_SYST 140; BP_SYST 142; BP_DIAS 70; BP_DIAS 73
[2017-07-27] MEDS: Dexamethasone 4mg/ml vial IVP SCH ×3 (06:00→12:33)
[2017-07-27 08:08] LABS: BASOPHILS % (AUTO) 0.4 % (0.0-2.0); LYMPHOCYTES % (AUTO) 11.2 % (20.0-45.0); MEAN CORPUSCULAR HEMOGLOBIN 30.5 PG (27.0-31.0); MEAN CORPUSCULAR VOLUME 95 FL (80-99); MEAN PLATELET VOLUME 11.6 FL (6.5-10.1); MONOCYTES % (AUTO) 9.6 % (1.0-10.0); NEUTROPHILS % (AUTO) 78.7 % (45.0-75.0); PLATELET COUNT 146 K/UL (150-450); RED BLOOD COUNT 4.32 M/UL (4.70-6.10); RED CELL DISTRIBUTION WIDTH 12.2 % (11.6-14.8); WHITE BLOOD COUNT 12.6 K/UL (4.8-10.8)
[2017-07-27 08:19] VITALS: BP 163/94
--- NOTE | 2017-07-27 08:34 | Pulmonology Progress Note ---
Assessment/Plan Assessment/Plan ASSESMENT Acute toxic metabolic encephalopathy 2 to brain lesion intracranial mass sepsis H of pancreatic Ca mild pulmonary HTN enlarged prostate PLAN OF CARE MS floor MRI brain noted CT A/P noted abx ID follows stool C dif negative blood cx negative Neuro follows Oncology/neurosurgery assessment----.pending at [facility] steroids started Keppra started then stopped by neuro seizure precautions fall precautions cancer tumor markers WNL- Ca15-3, Ca125, Ca 27-29 ECHO with pEF 60-65% and RVSP of 41 c/w mild pulmonary HTN renal US+ enlarged prostate DVT prophylaxis family wants higher level of care patient is usually at [facility] under oncologist dr Montoya patient was placed on transfer list no bed available family want him to be dc, will pay for ambulance and will go straight to ED [facility] case discussed and evaluated by supervising physician Subjective Allergies: Coded Allergies: No Known Allergies (Unverified , 04/25/13) UNABLE TO ASSESS (Unverified , 07/22/17) Subjective awake, responsive son at the bedside mild leukocytosis, likely due to steroids Objective Last 24 Hour Vital Signs Date Time Temp Pulse Resp B/P (MAP) Pulse Ox O2 Delivery O2 Flow Rate FiO2 07/27/17 08:19 97.8 65 18 163/94 99 Room Air 07/27/17 05:02 50 07/27/17 04:47 97.6 50 18 142/70 98 Room Air 07/27/17 01:27 49 165/80 99 Room Air 07/27/17 00:00 97.7 51 18 169/97 98 Room Air 07/26/17 20:44 97.6 71 20 159/96 97 Room Air 07/26/17 20:21 51 16 Room Air 07/26/17 16:00 97.2 51 18 137/79 99 07/26/17 11:58 97.5 50 20 132/80 100 Room Air 07/26/17 10:38 79 16 Room Air Objective General Appearance: other - chronically ill looking male in NAD HEENT: normocephalic, atraumatic, anicteric Respiratory/Chest: lungs clear, no respiratory distress Cardiovascular: normal rate, regular rhythm, no JVD Abdomen: normal bowel sounds, soft, non tender Genitourinary: normal external genitalia Extremities: no edema Neurologic/Psychiatric: abnormal gait, alert, responsive Musculoskeletal: atrophy Microbiology Date/Time Source Procedure Growth Status 07/24/17 23:35 Stool Clostridium difficile Toxin Assay - Final Complete Laboratory Tests 07/27/17 06:24: White Blood Count 12.6H, Red Blood Count 4.32L, Hemoglobin 13.2L, Hematocrit 41.1L, Mean Corpuscular Volume 95, Mean Corpuscular Hemoglobin 30.5, Mean Corpuscular Hemoglobin Concent 32.0, Red Cell Distribution Width 12.2, Platelet Count 146L, Mean Platelet Volume 11.6H, Neutrophils (%) (Auto) 78.7H, Lymphocytes (%) (Auto) 11.2L, Monocytes (%) (Auto) 9.6, Eosinophils (%) (Auto) 0.0, Basophils (%) (Auto) 0.4, Sodium Level [Pending], Potassium Level [Pending] , Chloride Level [Pending], Carbon Dioxide Level [Pending], Blood Urea Nitrogen [Pending], Creatinine [Pending], Estimat Glomerular Filtration Rate [Pending], Glucose Level [Pending], Calcium Level [Pending] Current Medications Medications (Trade) Dose Ordered Sig/Rory Route PRN Reason Start Time Stop Time Status Last Admin Dose Admin Acetaminophen (Tylenol) 650 mg Q4H PRN ORAL fever 07/24/17 17:30 08/21/17 21:29 Al Hydroxide/Mg Hydroxide (Mylanta II) 30 ml Q6H PRN ORAL dyspepsia 07/24/17 17:30 08/21/17 17:29 Albuterol/ Ipratropium (DuoNeb 0.5-3(2.5)mg/3ml) 3 ml Q4H PRN HHN Shortness of Breath 07/26/17 12:45 07/29/17 12:44 Clonidine HCl (Catapres) 0.1 mg EVERY 6 HOURS PRN ORAL For High Blood Pressure 07/27/17 08:30 08/26/17 08:29 UNV Dexamethasone Sodium Phosphate (Decadron 4mg/ml vial) 2 mg Q6HR IVP 07/25/17 18:00 08/24/17 17:59 07/26/17 17:14 Heparin Sodium (Porcine) (Heparin 5000 units/ml) 5,000 units EVERY 12 HOURS SUBQ 07/24/17 21:00 08/22/17 08:59 Irbesartan (Avapro) 75 mg DAILY ORAL 07/27/17 09:00 08/26/17 08:59 Lansoprazole (Prevacid) 15 mg DAILY ORAL 07/25/17 09:00 08/22/17 15:29 07/26/17 09:02 Nitroglycerin (Ntg) 0.4 mg Q5MIN X 3 DOSES PRN SL Prn Chest Pain 07/24/17 17:00 08/21/17 21:29 Non-Formulary Medication (Non-Formulary Med) 1 ea DAILY ORAL 07/27/17 09:00 08/26/17 08:59 UNV Ondansetron HCl (Zofran) 4 mg Q6H PRN IVP Nausea & Vomiting 07/24/17 17:30 08/21/17 17:29 Polyethylene Glycol (Miralax) 17 gm DAILYPRN PRN ORAL Constipation 07/24/17 17:30 08/21/17 17:29 Promethazine HCl/ Codeine (Phenergan with Codeine) 5 ml Q4H PRN ORAL For Cough 07/24/17 17:30 08/21/17 21:29 Temazepam (Restoril) 15 mg HSPRN PRN ORAL Insomnia 07/24/17 17:30 07/29/17 17:29 Colin ([facility])Gracy NP Jul 27, 2017 08:34
[2017-07-27] MEDS: Lansoprazole 15mg cap ORAL SCH (08:48)
[2017-07-27] MEDS: Heparin 5000 units/ml inj SUBQ SCH (09:00)
[2017-07-27 09:14] LABS: ANION GAP 9 mmol/L (5-15); CALCIUM 9.4 MG/DL (8.5-10.1); CARBON DIOXIDE 27 MMOL/L (21-32); CHLORIDE 106 MMOL/L (98-107); CREATININE 1.2 MG/DL (0.55-1.30); POTASSIUM 3.9 MMOL/L (3.5-5.1); SODIUM 142 MMOL/L (136-145)
[2017-07-27] MEDS ORDERED: ZOFRAN 4 MG4 MG/2 ML IVP (11:34)
[2017-07-27] MEDS ORDERED: DEXAMETHASONE IVP (11:34)
[2017-07-27] MEDS ORDERED: LANSOPRAZOLE15 MG ORAL (11:34)
[2017-07-27 12:00] VITALS: BP 127/58
--- NOTE | 2017-07-28 07:41 | General Progress Note ---
Assessment/Plan Assessment/Plan Assessment/Plan 1. Intracranial mass. likely spread from pancreatic cancer. see dr duncan at [facility], patient wants to be transferred to [facility] on private ambulance 2. History of pancreatic cancer. We obtained imaging including brain MRI, which shows rim-enhancing lesion in the frontal lobes. Differential diagnosis includes metastatic neoplasm versus infection. 3. Thrombocytopenia, likely secondary to reactive process. Currently stable 4. Anemia secondary to chronic disease. Stable 5. Coagulopathy. Prothrombin time is elevated indicating intrinsic pathway deficit with coagulation cascade. 6. History of malignancy of the pancreas. CA 19-9 is pending Subjective Date patient seen: Jul 27, 2017 Constitutional: Reports: no symptoms, Denies: chills, diaphoresis, fever, malaise, weakness, other HEENT: Denies: no symptoms, eye pain, blurred vision, tearing, double vision, ear pain, ear discharge, nose pain, nose congestion, throat pain, throat swelling, mouth pain, mouth swelling, other Cardiovascular: Denies: no symptoms, chest pain, edema, irregular heart rate, lightheadedness, palpitations, syncope, other Respiratory: Denies: no symptoms, cough, orthopnea, shortness of breath, SOB with excertion, SOB at rest, sputum, stridor, wheezing, other Gastrointestinal/Abdominal: Denies: no symptoms, abdomen distended, abdominal pain, black stools, tarry stools, blood in stool, constipated, diarrhea, difficulty swallowing, nausea, poor appetite, poor fluid intake, rectal bleeding , vomiting, other Genitourinary: Denies: no symptoms, burning, discharge, frequency, flank pain, hematuria, incontinence, pain, urgency, other Neurologic/Psychiatric: Denies: no symptoms, anxiety, depressed, emotional problems, headache, numbness, paresthesia, pre-existing deficit, seizure, tingling, tremors, weakness, other Endocrine: Denies: no symptoms, excessive sweating, flushing, intolerance to cold, intolerance to heat, increased hunger, increased thirst, increased urine, unexplained weight gain, unexplained weight loss, other Allergies: Coded Allergies: No Known Allergies (Unverified , 04/25/13) UNABLE TO ASSESS (Unverified , 07/22/17) Subjective no events to report overnight, no f/c Objective Last 24 Hour Vital Signs Date Time Temp Pulse Resp B/P (MAP) Pulse Ox O2 Delivery O2 Flow Rate FiO2 07/27/17 12:00 97.8 62 20 127/58 98 Room Air 07/27/17 08:48 163/94 07/27/17 08:36 57 16 Room Air 07/27/17 08:19 97.8 65 18 163/94 99 Room Air Height (Feet): 6 Height (Inches): 0.00 Weight (Pounds): 180 General Appearance: no apparent distress EENT: TMs normal Neck: normal alignment Cardiovascular: normal rate Respiratory/Chest: normal breath sounds Abdomen: non tender Pelvis: speculum exam normal Edema: mild edema Neurologic: alert Skin: warm/dry ALYCE QUIJANO Jul 28, 2017 07:41
--- NOTE | 2017-07-29 15:51 | Discharge Summary ---
Discharge Summary Hospital Course Date of Admission Jul 22, 2017 at 16:42 Date of Discharge Jul 27, 2017 at 13:21 Admitting Diagnosis sepsis HPI Migue Zheng is a 77 year old male who was admitted on Jul 22, 2017 at 16:42 for Sepsis Hospital Course dc summary #[id number] Discharge Medications New Medications: Dexamethasone Sod Phosphate (Dexamethasone Sodium Phosphate) 4 Mg/1 Ml Vial 2 MG IVP Q6HR, #20 VIAL Lansoprazole* (Lansoprazole*) 15 Mg Capsule.dr 15 MG ORAL DAILY, #30 CAP Ondansetron* (Zofran*) 4 Mg/2 Ml Vial 4 MG IVP Q6H PRN, #20 VIAL Continued Medications: Cholecalciferol (Vitamin D3) (Vitamin D-3) 2,000 Unit Capsule 1000 UNIT PO DAILY, CAP Lipase/Protease/Amylase (Creon Dr 24,000 Units Capsule) 1 Each Capsule.dr 1 EACH PO TID, CAP Valsartan (Diovan) 80 Mg Tab 80 MG ORAL DAILY, TAB Discharge Discharge Disposition Patient was discharged to Home (01) Discharge Diagnoses: Colin ([facility]),Gracy WARD Jul 29, 2017 15:51
--- NOTE | 2017-07-30 14:15 | Discharge Summary 2 SIG ---
DATE OF ADMISSION: 07/22/2017 DATE OF DISCHARGE: 07/27/2017 REASON FOR ADMISSION: 77-year-old male with a known history of pancreatic cancer, status post resection, presented to emergency room for altered mental status. Apparently, at that time, he was alert, awake, and oriented x1. He was febrile -102.6 and tachycardic -109. No leukocytosis. Lactic acid was within normal limits. Blood pressure was stable. Pulse oximetry was stable on room air. The patient had undergone an imaging. Chest x-ray revealed no acute cardiopulmonary pathology. CT of the head revealed left frontal mass 4 x 2.9 cm and small cystic mass in right frontal lobe. Findings could be neoplastic versus infection. No hemorrhage. The patient was admitted for altered mental status and intracranial masses. HOSPITAL COURSE: Patient was admitted. Neurology and ID specialists consult were requested. The patient was started on IV fluids and empiric antibiotic. No leukocytosis. The patient was pancultured. Blood culture was negative. Stool for C. diff negative. Urinalysis, no evidence of UTI. Chest x-ray without evidence of pulmonary infection. The patient status post antibiotic treatment for five days. Per ID monitor the patient off antibiotic . ID specialist felt that leukocytosis likely was related to malignancy process. Neurologist had seen and evaluated the patient. Neurologist ordered CT of the chest, abdomen, and pelvis to rule out occult malignancy, which revealed no evidence of metastatic neoplasm within the chest, abdomen, or pelvis except noted abnormal sclerosis and heterogeneity of the T9 vertebra. Findings were suspicious for metastatic neoplasm. The patient had an evidence of brain and bone metastasis as well as a history of pancreatic cancer resection few years ago. Neurologist started the patient on the steroids as well as the Keppra. Seizure precautions were maintained. No seizure activity while in the hospital. Neurologist recommended neurosurgery evaluation and transfer to higher level of care where neurosurgery services exist. The patient was placed on the transfer list for transfer to [facility]. The patient had admitting doctor, Dr. Montoya, who was his oncologist, however, no bed was available. Troponin was negative. The patient initially came with BUN -39 and creatinine- 1.5, likely due to dehydration. The patient does have a history of chronic kidney disease. Subsequently, the patient was on gentle IV fluids and prior to discharge, BUN down to 20 and creatinine down to 1.2. Renal ultrasound revealed no hydronephrosis, enlarged prostate, nonobstructive left intrarenal calculus. Normal bilateral echogenicity of kidneys. Oncology consult was requested. Oncologist had seen and evaluated the patient. Oncologist ordered cancer tumor markers, all came back within normal limits. All family at the bedside. Son arrived from [facility], [place]. Family asked for discharge order. Family verbalized that they will take the patient to another facility with higher level of care, since they wanted neurosurgery evaluation to be done. They felt that the transfer will take a longer time. At that time, patient's mental status returned to back to baseline. The patient was able to communicate and was more coherent. The patient was maintained on fall precaution. Echocardiogram revealed preserved ejection fraction of 60% to 65%, right ventricular systolic pressure of 41 consistent with mild pulmonary hypertension. Blood pressure was managed with current regimen of antihypertensive and was stable. DVT and GI prophylaxes were provided. Bowel regimen was instituted. Renal ultrasound revealed enlarged prostate. Family asked for discharge. Family was planning to get the patient for neurosurgery evaluation, not available at this facility. The patient was stable for discharge. FINAL DIAGNOSES: 1. Acute toxic metabolic encephalopathy, likely secondary to brain lesions, improving. 2. Brain and bone metastasis. 3. Pancreatic cancer resection few years ago. 4. Possible sepsis. 5. Mild pulmonary hypertension. 6. Enlarged prostate. 7. Hypertension. DISCHARGE MEDICATIONS: See medication reconciliation list. DISCHARGE INSTRUCTIONS: The patient was discharged home. FOLLOWUP: The patient will follow up with [facility] to get admission for neurosurgery services. Devendra Aguero M.D. Gracy Shaw ([place]) N.PMarvin DR: MAGALYS JOB#: [id number] CC: [email or web address]
== END 2017-07-27 13:21 | disposition home or self-care (01) | DRG 871 ==
LOC: EDBD 15:56 → EMR 16:39 → 2E 16:42 → EDBEDREQ 22:00 → EDBEDREQSVC 22:00 → EDBEDREQ 22:08 → 4W 07-24 16:57
DX: A41.9 Sepsis, unspecified organism (principal); E43 Unspecified severe protein-calorie malnutrition; G92 Toxic encephalopathy; C79.31 Secondary malignant neoplasm of brain; D68.9 Coagulation defect, unspecified; D69.6 Thrombocytopenia, unspecified; C79.51 Secondary malignant neoplasm of bone; I27.20 Pulmonary hypertension, unspecified; D64.9 Anemia, unspecified; Z85.07 Personal history of malignant neoplasm of pancreas; N40.0 Benign prostatic hyperplasia without lower urinary tract symptoms; I10 Essential (primary) hypertension
CPT/HCPCS: 36415; 70450; 70553; 71010; 71260; 74177; 76775; 80048; 80053; 80069; 80202; 80299; 81003; 82248; 82270; 82550; 82553; 82607; 82746; 83540; 83550; 83605; 83615; 83735; 84100; 84133; 84153; 84154; 84300; 84484; 84550; 85007; 85025; 85044; 85060; 85610; 85651; 85730; 86140; 86300; 86301; 86304; 86703; 86777; 86778; 87040; 87324; 89050; 93005; 93306; 94664; 99285; A9585